=== PATIENT | female | born 1950 | race Caucasian/White ===

== ENCOUNTER 2019-10-14 11:12 | Outpatient (CLI) | payer MEDICARE, SELFPAY | END 2019-10-14 12:00 | disposition home or self-care (01) | LOC: SPT 05-18 11:12 | PROVIDERS: PCP Nurse Practitioner Family; Visit Provider Podiatrist Foot & Ankle Surgery | DX: S92.354D Nondisplaced fracture of fifth metatarsal bone, right foot, subsequent encounter for fracture with routine healing (principal); X58.XXXD Exposure to other specified factors, subsequent encounter | CPT/HCPCS: L3031 ==

== ENCOUNTER → 2019-10-14 12:58 | Outpatient (BNVA) | payer MEDICARE, SELFPAY | PROVIDERS: Visit Provider Podiatrist Foot & Ankle Surgery | DX: S92.301A Fracture of unspecified metatarsal bone(s), right foot, initial encounter for closed fracture (principal); X58.XXXA Exposure to other specified factors, initial encounter | CPT/HCPCS: 73630 ==

== ENCOUNTER → 2019-11-25 13:23 | Outpatient (BNVA) | payer MEDICARE, SELFPAY | PROVIDERS: Visit Provider Podiatrist Foot & Ankle Surgery | DX: M84.374D Stress fracture, right foot, subsequent encounter for fracture with routine healing (principal); X58.XXXD Exposure to other specified factors, subsequent encounter; M81.8 Other osteoporosis without current pathological fracture | CPT/HCPCS: 73630 ==

== ENCOUNTER 2019-12-08 10:04 | Outpatient (CLI) | payer MEDICARE, SELFPAY ==
--- NOTE | 2019-12-08 10:16 | MR_ITS ---
WS: [id number] INDICATION: Foot pain. Pain and medial malleolus and dorsal foot. TECHNIQUE: MRI of the right foot without gadolinium enhancement. FINDINGS: Osteopenia. Normal ankle mortise. Talar dome is normal. Diffuse soft tissue edema involving the ankle and dorsal midfoot soft tissues. Normal medial and lateral malleolus.No avulsion fractures . No drainable fluid collections. Soft tissue edema involving the base of the third fourth and fifth metatarsals with bone marrow edema . Recommend correlation with area of trauma. This may represent contusion or nondisplaced fractures. Slight irregularity suspicious for nondisplaced fracture involving the base of the fourth metatarsal. Infection is also a consideration. Prominent plantar calcaneal spurring. Distal Achilles is normal. Tenosynovitis along the peroneal ten don sheaths. Tendinopathy involving the peroneus longus and brevis. Tenosynovitis along the flexor azevedo llucis longus. Small ankle effusion. MR/MR foot RT wo con* [id number] IMPRESSION: 1. Diffuse dorsal soft tissue edema with bone marrow edema involving the base of the third fourth and fifth metatarsals. Recommend correlation with area of t rauma. Considerations include contusion, nondisplaced fractures, or infection. Suspected nondisplaced fracture involving the base of the fourth metatarsal wit h irregularity in this area 2. No drainable fluid collections. 3. Normal ankle mortise. Normal medial malleolus. 4. Tenosynovitis and tendinopathy involving the peroneal tendons. 5. Tenosynovitis along the flexor hallucis longus.
== END 2019-12-08 10:05 | disposition home or self-care (01) ==
LOC: RADWPI 10:09
PROVIDERS: PCP Nurse Practitioner Family; Visit Provider Podiatrist Foot & Ankle Surgery
DX: M65.871 Other synovitis and tenosynovitis, right ankle and foot (principal); M79.671 Pain in right foot
CPT/HCPCS: 73718

== ENCOUNTER 2021-03-01 16:04 | Outpatient (CLI) | payer MEDICARE, SELFPAY ==
--- NOTE | 2021-03-01 16:31 | ECG_ITS ---
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 Measurements Intervals [place] Rate: 60 P: 17 NH: 139 QRS: -24 QRSD: 119 T: 42 QT: 400 QTc: 402 Interpretive Statements SINUS RHYTHM WITH OCCASIONAL SUPRAVENTRICULAR PREMATURE COMPLEXES VOLTAGE CRITERIA FOR LVH [MEETS CRITERIA IN ONE OF: R(aVL), S(V1), R(V5), R(V5/V6)+S(V1)] POSSIBLE ANTERIOR MYOCARDIAL INFARCTION [30 ms Q WAVE IN V3/V4, OR R < 0.2 mV IN V4], PROBABLY OLD No previous ECG available for comparison Electronically Signed On 03-01-2021 19:13:02 CDT by Filipe Hanley M.D. [id number]
== END 2021-03-01 16:05 | disposition home or self-care (01) ==
LOC: RT 16:13
PROVIDERS: PCP Nurse Practitioner Family; Visit Provider Nurse Practitioner Family
DX: I49.9 Cardiac arrhythmia, unspecified (principal)
CPT/HCPCS: 93005

== ENCOUNTER 2021-04-06 09:31 | Outpatient (CLI) | payer MEDICARE, SELFPAY ==
--- NOTE | 2021-04-06 09:06 | USCV_ITS ---
Lainey Peña Age: 70 Gender: F : 1950 Exam Date: 04/06/2021 09:39 Ordering Phys: Carlyn Worley NP Technologist: Christine Mason Exam Location: [facility] [place] Indication: EDEMA/OLD FL BP: 140 / 80 HR: 53 Rhythm: Sinus Technical Quality: Technically difficult study MEASUREMENTS (Male / Female) Normal Values 2D ECHO LV Diastolic Diameter PLAX 3.9 cm 4.2 - 5.9 / 3.9 - 5.3 cm LV Systolic Diameter PLAX 4.4 cm IVS Diastolic Thickness 1.1 cm 0.6 - 1.0 / 0.6 - 0.9 cm IVS Systolic Thickness 1.4 cm LVPW Diastolic Thickness 4.1 cm 0.6 - 1.0 / 0.6 - 0.9 cm LVPW Systolic Thickness 1.8 cm RV Chamber Size 2.7 cm LVOT Diameter 2.0 cm LV Ejection Fraction 2D Teich 47.2 % LV Ejection Fraction MOD 2C 55.3 % LV Ejection Fraction 2C AL 56.1 % LA Diameter 3.0 cm LA Width 4.4 cm LA Height 5.4 cm RA Width 3.6 cm RA Height 3.8 cm Aorta at Sinotubular Diameter 2.4 cm M-MODE LV Diastolic Diameter MM 5.5 cm 4.2 - 5.9 / 3.9 - 5.3 cm LV Systolic Diameter MM 4.2 cm LV Ejection Fraction MM Teich 46.2 % IVS Diastolic Thickness MM 1.2 cm 0.6 - 1.0 / 0.6 - 0.9 cm IVS Systolic Thickness MM 1.3 cm LVPW Diastolic Thickness MM 1.0 cm 0.6 - 1.0 / 0.6 - 0.9 cm LVPW Systolic Thickness MM 1.4 cm Aortic Annulus Diameter 2.8 cm LA Ao Ratio MM 1.3 MV E Point Septal Separation 1.2 cm DOPPLER AV Peak Velocity 192.0 cm/s LVOT Peak Velocity 108.0 cm/s AV Area Cont Eq vti 2.0 cm squared AV Area Cont Eq pk 1.8 cm squared MV Area PHT 5.0 cm squared Mitral E to A Ratio 1.2 MV E' Velocity 46.0 cm/s Mitral E to MV E' Ratio 13.1 Mitral E to LV E' Lateral Ratio 10.7 Mitral E to LV E' Septal Ratio 17.1 TR Peak Velocity 265.7 cm/s TR Peak Gradient 28.2 mmHg TV Peak E Velocity 77.0 cm/s Right Atrial Pressure 3.0 mmHg Pulmonary Artery Systolic Pressu 31.2 mmHg PV Peak Velocity 89.0 cm/s RV Acceleration Time 0.2 s RV Ejection Time 0.3 s RV AcT/ET 0.4 FINDINGS Left Ventricle Normal left ventricular size, systolic function and wall thickness, with no regional wall motion abnormalities. Left ventricular ejection fraction is estimated at 60 %. Grade II diastolic dysfunction, moderately elevated filling pressures. Right Ventricle Normal right ventricular size and systolic function. Right ventricular systolic pressure 34 mmHg. Right Atrium Normal right atrial size. Left Atrium Mildly increased left atrial size. Mitral Valve Mildly thickened mitral valve. No mitral valve stenosis. Trace mitral valve regurgitation. Aortic Valve Structurally normal trileaflet aortic valve. No aortic valve stenosis. No aortic valve regurgitation. Tricuspid Valve Structurally normal tricuspid valve. Mild tricuspid valve regurgitation. Pulmonic Valve Pulmonic valve not well visualized. No pulmonary valve stenosis. Trace pulmonary valve regurgitation. Pericardium No pericardial effusion. Aorta Normal size aortic root and proximal ascending aorta. CONCLUSIONS 1. Normal left ventricular size, systolic function and wall thickness, with no regional wall motion abnormalities. Left ventricular ejection fraction is estimated at 60 %. Grade II diastolic dysfunction, moderately elevated filling pressures. 2. Normal right ventricular size and systolic function. 3. Mild tricuspid valve regurgitation. 4. Pulmonary artery pressure estimated at 34 mm Hg. 5. No prior similar studies to compare. Crystal García MD (Electronically Signed) Final Date: 07 April 2021 20:13 S
== END 2021-04-06 09:32 | disposition home or self-care (01) ==
PROVIDERS: PCP Nurse Practitioner Family; Visit Provider Nurse Practitioner Family
DX: I25.2 Old myocardial infarction (principal); R60.9 Edema, unspecified; I07.1 Rheumatic tricuspid insufficiency
CPT/HCPCS: 93306

== ENCOUNTER 2021-04-18 07:23 | Outpatient (CLI) | payer MEDICARE, SELFPAY ==
[2021-04-18 07:37] VITALS: BMI 42.5
--- NOTE | 2021-04-18 08:00 | ECG_ITS ---
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 Interpretive Statements NAME OF STUDY: LEXISCAN SESTAMIBI STRESS TEST INDICATION: [old mi] Procedure: At the baseline, the blood pressure was 192/93 mmHg with a heart rate of 55 bpm. The electrocardiogram showed sinus bradycardia, normal axis with normal ST and T's. The Lexiscan was infused over a period of 20 seconds. A total of 0.4 mg of Lexiscan was infused. The stress phase was continued for a total of 5 minutes. Heart rate was at the end of stress phase was 58 bpm and a blood pressure of 179/82 mmHg. The EKG at the peak infusion revealed since normal sinus rhythm with no significant ST-T wave changes. Sestamibi was injected 20 seconds after the Lexiscan infusion. Blood pressure at the end of recovery phase was 178/85 mmHg with a heart rate of 61 bpm. Conclusion: 1. Normal EKG response to Lexiscan infusion 2. No Lexiscan induced chest pain or cardiac arrhythmia. 3. Normal blood pressure and heart rate response. 4. Sestamibi/sestamibi perfusion scan pending; see separate report. Electronically Signed On 05-16-2021 9:26:25 CDT by Filipe Hanley M.D. [id number]
--- NOTE | 2021-04-18 08:01 | NMCV_ITS ---
NM chetan perf SPECT r/s* [id number] Lainey Peña Age: 70 Gender: F : 1950 Exam Date: 04/18/2021 08:46 Ordering Phys: Carlyn Worley NP Technologist: TUNG Benson Exam Location: [facility] Indications: OLD MYOCARDIAL INFARCTION STRESS TEST [facility] IMAGE PROTOCOL Rest/Stress 1 Lexiscan Day Radiopharmaceutical Dose (mCi) Administration Site Administered by Rest: Tc-99m 10.8 IV TUNG Johnson Sestamibi Stress:Tc-99m 32.7 IV TUNG Benson Sestamijeanette Rest: 18-Apr-2021 60 Discovery 630 Stress: 18-Apr-2021 30 Discovery 630 0.4mg Lexiscan. Images obtained in supine and prone position. SPECT RESULTS Technical Quality: Excellent Raw Data Analysis: Breast attenuation Image Corrections: No attenuation or motion correction applied Summed Stress Score: 8 Summed Rest Score: 7 Summed Difference Score: 2 PERFUSION FINDINGS Small size perfusion abnormality of mild severity of basal to mid inferolateral, apical lateral, apical inferior and apical ding on rest images with subtle reversibility in the infero-lateral wall on stress images. There is improved tracer uptake in basal to mid inferolateral wall on prone stress images. FUNCTIONAL RESULTS (calculated via Gated SPECT) Stress Image LV EF (%): 53 Stress EDV (mL):166 TID: 1.09 Stress ESV (mL):78 FUNCTIONAL FINDINGS: The left ventricle is normal in size. Transient Ischemia Dilatation of 1.1. There is low normal left ventricular systolic function. The left ventricular ejection fraction is low normal with a value of 53%. There is normal left ventricular wall thickening with no regional wall motion abnormality. IMPRESSIONS 1. Small sized perfusion abnormality of mild severity of basal to mid inferolateral, apical lateral, apical inferior and apical ding with subtle reversibility in the infero-lateral wall. 2. This may represent attenuation artifact given improved tracer uptake on prone imaging. However small area of ischemia in circumflex artery territory cannot be completely ruled out. 3. Overall left ventricular systolic function is low normal without regional wall motion abnormalities, LVEF=53%. 4. EKG portion of the study will be reported separately. 5. No prior similar studies to compare. Crystal García MD (Electronically Signed) Final Date: 19 April 2021 16:20 S
[2021-04-18] MEDS: regadenoson 0.4 Mg/5 ml Syringe IVP (09:50)
[2021-04-18 10:00] VITALS: BP 178/85; PULSE 61
== END 2021-04-18 07:24 | disposition home or self-care (01) ==
PROVIDERS: PCP Nurse Practitioner Family; Visit Provider Nurse Practitioner Family
DX: I25.2 Old myocardial infarction (principal)
CPT/HCPCS: 78452; 93017; A9500; J2785

== ENCOUNTER 2021-06-02 19:46 | Emergency (ER) | payer MEDICARE, SELFPAY ==
[2021-06-02 20:21] VITALS: BP 206/120; PULSE 69; RESP 18; TEMP 36.6; O2SAT 96; BMI 39.4
--- NOTE | 2021-06-02 20:31 | ED_ITS ---
HPI - Abdominal Pain General: Chief Complaint: Abdominal Pain Stated Complaint: abd pain Time Seen by Provider: 06/02/21 20:31 History of Present Illness: HPI narrative: Ms Peña is a 71-year-old lady with history of hypertension, hyperlipidemia, and atypical chest pain who presents the emergency department due to epigastric discomfort. Symptom onset was at rest sometime after dinner earlier this evening at approximately 6. Symptoms lasted for roughly 30 minutes. She describes a moderate intensity tight band of pressure associated mild chills/sweats, nausea, and shortness of breath. She describes 1 similar episode in the past for which she was not evaluated at hospital but did have an outpatient stress test which was apparently negative. She denies known specific provoking factors. There is no specific exacerbating relieving factors. She is otherwise been at her baseline health. denies infectious symptoms. Review of Systems General: Reports: 10 or more systems reviewed and unremarkable except in HPI and below Narrative: CONSTITUTIONAL: denies fever, fatigue, weakness EYES - denies pain, denies loss of vision EARS - denies ear issues. NOSE - denies congestion or rhinorrhea. THROAT - denies sore throat or difficulty swallowing. CARDIOVASCULAR -see HPI RESPIRATORY -see HPI GASTROINTESTINAL -see HPI GENITOURINARY - denies dysuria or urinary frequency MUSCULOSKELETAL- denies deformity or pain SKIN - denies rashes or new changed skin lesions NEUROLOGIC - denies focal weakness or sensory changes HEMATOLOGIC/LYMPHATIC - denies easy bruising or lymphadenopathy. [facility] ED PFSH: Medical History Arthrosis of right midfoot Metatarsalgia, left foot PAD (peripheral artery disease) Stress fracture of metatarsal bone of right foot Family History Mother CAD (coronary artery disease) Father CAD (coronary artery disease) Brother Lung disease Stroke Denies family history of Diabetes Clotting disorder Dementia Chronic kidney disease (CKD) Suicide Anesthesia complication Bleeding disorder Cancer Social History Smoking and tobacco status: never smoked Second hand smoke exposure: No Smoking risk assessment/counseling performed?: Yes Alcohol intake: never Desire information about alcohol rehabilitation?: No Counseling given: No Desire information about substance/drug rehabilitation?: No Counseling given: No Physical Exam Narrative: EXAM NARRATIVE: GENERAL/CONSTITUTIONAL - well-appearing. No acute distress. Eyes - PERRL, no conjunctival injection ENMT - Atraumatic external nose and ears. Moist mucous membranes NECK - supple. trachea midline CARDIOVASCULAR - regular rate and rhythm. Peripheral pulses 2+ and equal RESPIRATORY -clear to auscultation bilaterally. No retractions or accessory muscle use. ABDOMEN/GI -mild to moderate tenderness palpation in the upper left quadrant and epigastric region. Nondistended. No tenderness to percussion or evidence of peritonitis MSK - Extremities without obvious deformity or tenderness to palpation SKIN - Warm, Dry NEURO - alert and appropriately oriented. strength and sensation intact. Moves all extremities equally. PSYCH - Appropriate mood and affect Course ED course: - Patient was seen and evaluated by me at bedside - Patient placed on cardiac monitors, IV access obtained - Initial evaluation notable for no acute distress, nontoxic appearance. Exam as noted above. - Labs notable for no significant abnormality to explain the patient's symptoms. Delta troponin negative. Likely mild dehydration, fluids ordered. - Imaging notable for no lobar consolidation or obvious abnormality noted on chest x-ray. Cholelithiasis without evidence of cholecystitis. Mild thickening of the lower esophagus which may be secondary to GERD/hiatal hernia. Incidental finding of right adnexal ovarian cystic lesion discussed with patient including need for follow-up. -Findings of previous perfusion scan on stress test discussed with Dr. Agee of cardiology, likely felt to be artifactual. Patient does not require admission at this time based on these findings and, given story and negative troponin repeat stress test or cardiac cath procedure would not be performed inpatient. This was discussed with the patient. She was comfortable with outpatient follow-up. - Upon serial reexamination after treatment the patient was improved without recurrence of symptoms - Based on patient history, evaluation, labs, and imaging as interpreted the most likely cause of the patient's condition is unspecified abdominal pain - The results of ED evaluation were discussed with the patient including prescriptions and/or symptomatic cares (if applicable) including appropriate and responsible use, followup plan, and return precautions. The patient verbalized understanding and felt safe for discharge. - Patient discharged in satisfactory condition. Vital Signs: Vital signs: Vital Signs Temperature 98.8 F 06/02/21 22:42 Pulse Rate 55 L 06/03/21 00:03 Respiratory Rate 16 06/03/21 00:03 Blood Pressure 170/91 06/03/21 00:03 Pulse Oximetry 97 06/03/21 00:03 MDM - Abdominal Pain Medical Records: Attestation: I reviewed the patient's medical records. Lab Data: Attestation: I reviewed the patient's lab results. Labs: Lab Results 06/02/21 06/02/21 06/02/21 Range/Units 21:32 21:32 21:32 WBC 9.4 (4.0-10.0) 10^3/ uL RBC 4.62 (4.1-5.3) 10^6/u L Hgb 13.6 (11.5-15.3) g/dL Hct 42.3 (37.0-47.0) % MCV 91.6 (81-99) fl MCH 29.4 (28.0-34.0) pg MCHC 32.2 (30.0-36.0) g/dL RDW 12.3 (12.1-15.1) % Plt Count 207 (130-400) 10^3/c mm MPV 11.4 H (7.4-10.4) fL Neut % (Auto) 77.5 % Lymph % (Auto) 15.3 % Alexander % (Auto) 5.8 % Eos % (Auto) 0.8 % Baso % (Auto) 0.4 % Neut # (Auto) 7.29 (1.8-7.7) 10^3/u L Lymph # (Auto) 1.4 (0.8-4.8) 10^3/u L Alexander # (Auto) 0.6 (0.2-0.9) 10^3/u L Eos # (Auto) 0.1 (0.0-0.8) 10^3/u L Baso # (Auto) 0.0 (0.0-0.1) 10^3/u L Nucleated RBC % (a uto) 0 % Nucleated RBCs # 0.0 /100WBC Sodium 144 (136-145) mmol/L Potassium 4.3 (3.5-5.1) mmol/L Chloride 108 H (98-107) mmol/L Carbon Dioxide 24 (22-29) mmol/L Anion Gap 16.3 (5-19) BUN 22 (8-23) mg/dL Creatinine 1.1 H (0.5-0.9) mg/dL GFR Calculation Not Reportable Glucose 91 (65-115) mg/dL Calculated Osmolal ity 301 H (285-295) mOsm/k g Lactate 0.9 (0.5-2.2) mmol/L Calcium 8.7 (8.5-10.5) mg/dL Total Bilirubin 0.2 (0.15-1.2) mg/dL AST 36 H (0-32) U/L ALT 24 (0-33) U/L Alkaline Phosphata se 159 H (35-105) IU/L Troponin T Baselin e (0-10) ng/L Troponin T 120 Min [place] (0-10) ng/L Delta Troponin T (0-10) ABS# Total Protein 6.3 L (6.6-8.7) g/dL Albumin 4.1 (3.5-5.2) g/dL Globulin 2.2 (1.3-4.6) g/dL Lipase 28 (13-60) U/L Urine Color (Yellow) Urine Appearance (CLEAR) Urine pH (5-7) Ur Specific Gravit y (1.005-1.030) Urine Protein (Negative) Urine Glucose (UA) (Normal) Urine Ketones (Negative) Urine Blood (Negative) Urine Nitrate (Negative) Urine Bilirubin (Negative) Urine Urobilinogen (Negative) mg/dL Ur Leukocyte Nisa ase (Negative) 06/02/21 06/02/21 06/02/21 Range/Units 21:32 21:33 22:14 WBC (4.0-10.0) 10^3/ uL RBC (4.1-5.3) 10^6/u L Hgb (11.5-15.3) g/dL Hct (37.0-47.0) % MCV (81-99) fl MCH (28.0-34.0) pg MCHC (30.0-36.0) g/dL RDW (12.1-15.1) % Plt Count (130-400) 10^3/c mm MPV (7.4-10.4) fL Neut % (Auto) % Lymph % (Auto) % Alexander % (Auto) % Eos % (Auto) % Baso % (Auto) % Neut # (Auto) (1.8-7.7) 10^3/u L Lymph # (Auto) (0.8-4.8) 10^3/u L Alexander # (Auto) (0.2-0.9) 10^3/u L Eos # (Auto) (0.0-0.8) 10^3/u L Baso # (Auto) (0.0-0.1) 10^3/u L Nucleated RBC % (a uto) % Nucleated RBCs # /100WBC Sodium (136-145) mmol/L Potassium (3.5-5.1) mmol/L Chloride (98-107) mmol/L Carbon Dioxide (22-29) mmol/L Anion Gap (5-19) BUN (8-23) mg/dL Creatinine (0.5-0.9) mg/dL GFR Calculation Glucose (65-115) mg/dL Calculated Osmolal ity (285-295) mOsm/k g Lactate (0.5-2.2) mmol/L Calcium (8.5-10.5) mg/dL Total Bilirubin (0.15-1.2) mg/dL AST (0-32) U/L ALT (0-33) U/L Alkaline Phosphata se (35-105) IU/L Troponin T Baselin e 10 (0-10) ng/L Troponin T 120 Min [place] 10.62 H (0-10) ng/L Delta Troponin T 0.62 (0-10) ABS# Total Protein (6.6-8.7) g/dL Albumin (3.5-5.2) g/dL Globulin (1.3-4.6) g/dL Lipase (13-60) U/L Urine Color Yellow (Yellow) Urine Appearance Clear (CLEAR) Urine pH 5 (5-7) Ur Specific Gravit y 1.015 (1.005-1.030) Urine Protein Neg (Negative) Urine Glucose (UA) Norm (Normal) Urine Ketones Negative (Negative) Urine Blood Neg (Negative) Urine Nitrate Negative (Negative) Urine Bilirubin 1+ H (Negative) Urine Urobilinogen 1 H (Negative) mg/dL Ur Leukocyte Nisa ase Negative (Negative) EKG Data ^: EKG 1: Attestation: I personally reviewed and interpreted this EKG as follows: EKG interpretation date: 06/02/21 EKG interpretation time: 22:30 Interpretation: Twelve-lead EKG shows an irregular sinus rhythm at a rate of 58. WV interval 151, QRS duration 119, QTc 429. Left axis deviation. Interpretation: Sinus arrhythmia, bradycardia, interventricular conduction delay. Discharge Plan Discharge Patient Disposition: Home Clinical Impression: Abdominal pain, Atypical chest pain, Hypertension Condition: Stable Prescriptions: New Pepcid 40 mg tablet 40 mg PO DAILY Qty: 30 RF: 0 No Action verapamil 120 mg tablet 120 mg PO BID RF: 0 (DME) carbon fiber insert Qty: 1 RF: 0 lovastatin 20 mg tablet 10 mg PO DAILY RF: 0 furosemide 40 mg tablet 40 mg PO BID PRN (Reason: edema) RF: 0 lisinopril 40 mg tablet 40 mg PO DAILY Qty: 90 RF: 3 nitroglycerin 0.4 mg tablet, sublingual 0.4 mg sublingual Q5M PRN (Reason: chest pain) 30 Days Qty: 30 RF: 3 Discharge Orders: Discharge ED (Routine); Ordered 06/02/21 Ordered By: Mario Figueroa Referrals: Carlyn Worley NP [Primary Care Provider] - Discharge Diet: Usual diet Patient Instructions: Chest Pain (ED), Abdominal Pain (ED) Activity Restrictions/Additional Instructions: Thank you for visiting the emergency department. You were seen and evaluated for upper abdominal discomfort that since resolved. The exact cause of your symptoms is unclear. Your troponin was normal over 2-hour interval. Your CT scan showed a few possible causes of your symptoms. You were noted to have gallstones (cholelithiasis) without distinct evidence of infection of the gallbladder (cholecystitis). This can cause discomfort typically thought it is biliary colic. Additionally you do have mild inflammation of the esophagus. The most common cause of this is likely reflux. You will be given a prescription for acid reducing medication. As an incidental finding radiology reported a: 4.5 x 4.1 cm right adnexal/ovarian cystic lesion, increasing in size. The interval growth would raise concern for possible ovarian neoplasm such as cystadenoma or cystadenocarcinoma. Appropriate gynecological workup/follow-up recommended. Please follow-up with your primary care provider. Please follow-up with your primary care provider. Please return to the emergency department for recurrence of your symptoms, chest pain, shortness of breath, or anything else that you are concerned about and feel needs emergency department evaluation. Coding Level of Care Code ED [employer]
--- NOTE | 2021-06-02 20:45 | XRR_ITS ---
PROCEDURE INFORMATION: Exam: XR Chest Exam date and time: 06/02/2021 8:45 PM Age: 71 years old Clinical indication: Pain; Left-sided; Additional info: Chest pain under breast TECHNIQUE: Imaging protocol: XR of the chest. Views: 1 view. Total images: 1 COMPARISON: No relevant prior studies available. FINDINGS: Lungs: No visible active interstitial or alveolar airspace disease. Pleural spaces: No pleural effusion. No pneumothorax. Heart/Mediastinum: Cardiac structures and configuration with arteriosclerosis and mild cardiomegaly. Bones/joints: Unremarkable. XR/XR chest 1V portable [id number] IMPRESSION: Nonacute.
[2021-06-02 21:41] LABS: Basophils % 0.4 %; Eosinophils # 0.1 10^3/uL (0.0-0.8); Eosinophils % 0.8 %; Hematocrit 42.3 % (37.0-47.0); Hemoglobin 13.6 g/dL (11.5-15.3); Lymphocytes # 1.4 10^3/uL (0.8-4.8); Lymphocytes % 15.3 %; Mean Corpuscular HGB Conc 32.2 g/dL (30.0-36.0); Mean Corpuscular Hemoglobin 29.4 pg (28.0-34.0); Mean Corpuscular Volume 91.6 fl (81-99); Mean Platelet Volume 11.4 fL (7.4-10.4); Monocytes # 0.6 10^3/uL (0.2-0.9); Monocytes % 5.8 %; Neutrophils # 7.29 10^3/uL (1.8-7.7); Neutrophils % 77.5 %; Nucleated Red Blood Cells % 0 %; Platelet Count 207 10^3/cmm (130-400); Red Blood Count 4.62 10^6/uL (4.1-5.3); Red Cell Distribution Width 12.3 % (12.1-15.1); White Blood Count 9.4 10^3/uL (4.0-10.0)
[2021-06-02 21:56] LABS: Add Urine Microscopic? NO; Charge for UA Resulting for Rev
[2021-06-02 21:57] VITALS: BP 210/110; PULSE 62; RESP 18; TEMP 36.4; O2SAT 98
[2021-06-02 22:01] LABS: Bilirubin Urine 1+ (Negative); Blood Urine Neg (Negative); Glucose Urine UA Norm (Normal); Ketones Urine Negative (Negative); Leukocyte Esterase Urine Negative (Negative); Nitrate Urine Negative (Negative); Protein Urine Neg (Negative); Specific Gravity, Urine 1.015 (1.005-1.030); Urine Appearance Clear (CLEAR); Urine Color Yellow (Yellow); Urobilinogen Urine 1 mg/dL (Negative); pH Urine 5 (5-7)
[2021-06-02 22:05] LABS: Troponin(5th) Baseline 10 ng/L (0-10)
[2021-06-02 22:07] LABS: Alanine Aminotransferase 24 U/L (0-33); Albumin Level 4.1 g/dL (3.5-5.2); Alkaline Phosphatase 159 IU/L (35-105); Anion Gap 16.3 (5-19); Aspartate Amino Transferase 36 U/L (0-32); Blood Urea Nitrogen 22 mg/dL (8-23); Calcium 8.7 mg/dL (8.5-10.5); Carbon Dioxide 24 mmol/L (22-29); Chloride 108 mmol/L (98-107); Globulin 2.2 g/dL (1.3-4.6); Glucose 91 mg/dL (65-115); Lipase 28 U/L (13-60); Osmolality Calculated 301 mOsm/kg (285-295); Potassium 4.3 mmol/L (3.5-5.1); Sodium 144 mmol/L (136-145); Total Bilirubin 0.2 mg/dL (0.15-1.2); Total Protein 6.3 g/dL (6.6-8.7)
[2021-06-02 22:08] LABS: Lactate (Lactic Acid level) 0.9 mmol/L (0.5-2.2)
--- NOTE | 2021-06-02 22:19 | CTR_ITS ---
PROCEDURE INFORMATION: Exam: CT Abdomen And Pelvis With Contrast Exam date and time: 06/02/2021 10:19 PM Age: 71 years old Clinical indication: Other: Sweating; Abdominal pain TECHNIQUE: Imaging protocol: Computed tomography of the abdomen and pelvis with contrast. Radiation optimization: All CT scans at this facility use at least one of these dose optimization techniques: automated exposure control; mA and/or kV adjustment per patient size (includes targeted exams where dose is matched to clinical indication); or iterative reconstruction. Contrast material: VISI 320; Contrast volume: 95 ml; Contrast route: INTRAVENOUS (IV); COMPARISON: CTA AbdAorta Runoff Leg [id number] 06/17/2019 2:52 PM RADIATION DOSE METRICS: Total DLP (mGy-cm): 1463.31 FINDINGS: Lungs: The lung bases are clear. Heart: Moderate cardiomegaly. Mediastinal space: Possible small hiatal hernia. There may be some mucosal/wall thickening involving the lower esophagus. This is nonspecific, but could represent evidence for esophagitis. Neoplasm not entirely excluded. Please correlate clinically. Liver: Unremarkable. Gallbladder and bile ducts: Several large gallstones visible within the gallbladder, measuring up to 2.5 cm in size. The gallbladder is somewhat distended, transverse diameter up to 4.5 cm. No definite pericholecystic fluid or inflammation at this time. No definite/significant biliary tree dilation. Pancreas: Unremarkable. Spleen: Unremarkable. Adrenal glands: Unremarkable. Kidneys and ureters: 12 mm likely benign cyst in the left kidney, not significantly changed. No hydronephrosis of either kidney. No visible ureteral calculus. Stomach and bowel: There are no CT findings to strongly suggest diverticulitis. Appendix: The appendix is visualized and appears normal. Intraperitoneal space: No free air, ascites, or bowel distention. Vasculature: No evidence for abdominal aortic aneurysm. Lymph nodes: No retroperitoneal adenopathy. Urinary bladder: Unremarkable as visualized. Reproductive: 4.5 x 4.1 cm right adnexal/ovarian cystic lesion. On the 2018 comparison exam, this cyst measured 3.5 x 3.5 cm. Physiologic cysts would not be expected in this age group. The interval growth would raise concern for possible ovarian neoplasm such as cystadenoma or cystadenocarcinoma. Appropriate gynecological workup/follow-up recommended. Bones/joints: Mild to moderate degenerative/arthritic changes throughout the lumbar spine. Moderate arthritic changes in both hips. Soft tissues: Small umbilical hernia, containing only fat. CT/CT abdomen pelvis w con* [id number] IMPRESSION: 1. Cholelithiasis, see additional details above. 2. 4.5 x 4.1 cm right adnexal/ovarian cystic lesion, increasing in size. The interval growth would raise concern for possible ovarian neoplasm such as cystadenoma or cystadenocarcinoma. Appropriate gynecological workup/follow-up recommended. 3. Normal appendix. 4. No free air or bowel distention. 5. Possible small hiatal hernia. Possibly some thickening of the lower esophagus, see above discussion. 6. Other findings discussed above. Radiation Dose CTDIVOL = (mGy): DLP = 1463.31 (mGy-cm)
[2021-06-02] MEDS: lisinopril 20 mg Tablet 40 MG PO (22:29)
--- NOTE | 2021-06-02 22:31 | ECG_ITS ---
[facility] Test Date: 2021-06-02 Pat Name: Lainey Peña Department: Room: Gender: Female Sql Ssrs Ssis Developer: : 1950 Requested By: Jarrell Chapa Order Number: [id number] Briceno MD: Crystal García M.D. Measurements Intervals [place] Rate: 58 P: 81 OR: 151 QRS: -28 QRSD: 119 T: 64 QT: 437 QTc: 429 Interpretive Statements SINUS BRADYCARDIA WITH MARKED SINUS ARRHYTHMIA VOLTAGE CRITERIA FOR LVH [MEETS CRITERIA IN ONE OF: R(aVL), S(V1), R(V5), R(V5/V6)+S(V1)] POSSIBLE ANTERIOR MYOCARDIAL INFARCTION , OF INDETERMINATE AGE [30 ms Q WAVE IN V3/V4, OR R < 0.2 mV IN V4] Compared to ECG 03/01/2021 16:26:37 Sinus rhythm no longer present Myocardial infarct finding still present Electronically Signed On 06-03-2021 9:06:11 CDT by Crystal García M.D. [id number]
[2021-06-02] MEDS: iodixanol 320 mg/mL 100mL Btl IV (22:35)
[2021-06-02 22:38] LABS: Troponin 5 2HR 10.62 ng/L (0-10); Troponin 5 2HR Delta 0.62 ABS# (0-10)
[2021-06-02 22:42] VITALS: BP 170/110; PULSE 68; RESP 20; TEMP 37.1; O2SAT 98
[2021-06-03 00:03] VITALS: BP 170/91; PULSE 55; RESP 16; O2SAT 97
== END 2021-06-03 00:07 | disposition home or self-care (01) ==
PROVIDERS: Emergency Medicine; Physician Assistant; Emergency Provider Emergency Medicine; PCP Nurse Practitioner Family
DX: R10.9 Unspecified abdominal pain (principal); R07.89 Other chest pain; I10 Essential (primary) hypertension
CPT/HCPCS: 71045; 74177; 80053; 81003; 83605; 83690; 84484; 85025; 93005; 99283; Q9967

== ENCOUNTER → 2021-08-11 10:49 | Outpatient (BNVA) | payer MEDICARE, SELFPAY | PROVIDERS: PCP Nurse Practitioner Family; Visit Provider Obstetrics & Gynecology | DX: N83.201 Unspecified ovarian cyst, right side (principal); N88.8 Other specified noninflammatory disorders of cervix uteri; N85.4 Malposition of uterus | CPT/HCPCS: 76830 ==

== ENCOUNTER → 2021-12-15 09:41 | Outpatient (BNVA) | payer MEDICARE, SELFPAY | PROVIDERS: PCP Nurse Practitioner Family; Visit Provider Internal Medicine Cardiovascular Disease | DX: R06.02 Shortness of breath (principal); I11.0 Hypertensive heart disease with heart failure; I50.9 Heart failure, unspecified | CPT/HCPCS: 99214 ==

== ENCOUNTER 2022-03-03 05:58 | Outpatient (CLI) | payer MEDICARE, SELFPAY ==
--- NOTE | 2022-03-03 06:15 | USCV_ITS ---
Lainey Peña Age: 71 Gender: F : 1950 Exam Date: 03/03/2022 06:15 Ordering Phys: Meliton Cole MD ([email or web address]) Technologist: Danelle Weathers [place]am [place] [facility] [place] Indication: Pain in legs. Pain while resting and motion Risk Factors: Unknown Previous Vascular Surgery: None RIGHT LEFT BP: 150.0 / BP: 161.0/ 0 0 Waveform Velocity (cm/s) Velocity (cm/s) Waveform Triphasic 114.7 Iliac Prox 101.9 Biphasic Triphasic 89.2 Iliac Mid 114.1 Biphasic Triphasic 70.1 Iliac Distal 119.7 Biphasic Triphasic 69.7 INSIDE SALES ADVERTISING EXECUTIVE 122.5 Biphasic Triphasic 70.8 SFA Prox 97.9 Biphasic Triphasic SFA Mid Biphasic 52.2 90.3 Triphasic 70.8 SFA Dist 101.0 Biphasic Triphasic 42.7 POP 87.2 Biphasic Triphasic 63.0 AUTOMOBILE BODY WORKER 82.6 Biphasic Triphasic 81.5 DPA 71.9 Biphasic 1.1 RHONDA 1.0 FINDINGS RT DPA 100 RT AUTOMOBILE BODY WORKER 180 LT DPA 140 LT AUTOMOBILE BODY WORKER 160 Resting RHONDA 1.1 on the right side and 1.0 on the left side. Mild to moderate diffuse plaques in the iliac and femoral arteries bilaterally CONCLUSIONS #1. Normal resting ABIs bilaterally, suggesting no significant arterial obstruction #2. Mild to moderate diffuse plaques in the iliac and femoral arteries bilaterally Dr Meliton Cole MD [facility] (Electronically Signed) Final Date: 04 March 2022 00:52 S
== END 2022-03-03 05:59 | disposition home or self-care (01) ==
LOC: RAD 05:58
PROVIDERS: PCP Nurse Practitioner Family; Visit Provider Internal Medicine Cardiovascular Disease
DX: I73.9 Peripheral vascular disease, unspecified (principal)
CPT/HCPCS: 93925

== ENCOUNTER → 2022-06-20 10:26 | Outpatient (BNVA) | payer MEDICARE, SELFPAY | PROVIDERS: PCP Nurse Practitioner Family; Visit Provider Nurse Practitioner Family | DX: I73.9 Peripheral vascular disease, unspecified (principal); I10 Essential (primary) hypertension | CPT/HCPCS: 99213; 99214 ==

== ENCOUNTER → 2022-06-29 10:41 | Outpatient (BNVA) | payer MEDICARE, SELFPAY | PROVIDERS: PCP Nurse Practitioner Family; Visit Provider Obstetrics & Gynecology | DX: N83.201 Unspecified ovarian cyst, right side (principal) | CPT/HCPCS: 76830 ==

== ENCOUNTER 2022-07-18 03:59 | Inpatient (IN) | payer MEDICARE, SELFPAY ==
[2022-07-18] VITALS (24 sets, daily range): BP systolic 128–220; BP diastolic 56–121; PULSE 63–85; RESP 14–30; TEMP 36.8–37.2; O2SAT 90–97; BMI 47.8
--- NOTE | 2022-07-18 04:09 | USR_ITS ---
PROCEDURE INFORMATION: Exam: US Abdomen, Limited; Right Upper Quadrant Exam date and time: 07/18/2022 4:48 AM Age: 72 years old Clinical indication: Abdominal pain; Acute; Patient HX: Mid epigastric and mid umbilical pain x 8 hrs; Additional info: Abd pain TECHNIQUE: Imaging protocol: Real time ultrasound of the abdomen with image documentation. Limited exam focused on the right upper quadrant. COMPARISON: CT abdomen pelvis w con* [id number] 06/02/2021 10:29 PM FINDINGS: Liver: Somewhat increased echogenicity of the liver may indicate fatty infiltration. The liver appears borderline/mildly enlarged, with right lobe length of 19-20 cm. No definite/significant focal hepatic abnormality on the provided images. Gallbladder: Multiple shadowing gallstones within the gallbladder, measuring up to about 3 cm in size. There is also a prominent amount of biliary sludge in the gallbladder. The gallbladder is abnormally distended, transverse diameter up to about 5 cm. Gallbladder wall appears somewhat thickened, up to 10-11 mm in some areas. No definite pericholecystic fluid. Technologist states patient was tender over the gallbladder region during scanning. The above findings could represent evidence for cholecystitis, please correlate clinically. Biliary ducts: Borderline/mild biliary tree dilation for age, with common duct measuring up to 7.7 mm. No visible common duct stone by ultrasound. Significance uncertain. Correlation with laboratory/bilirubin levels may be helpful to determine if there is any significant biliary obstruction. Pancreas: Visible pancreas unremarkable. Right kidney: Images of the right kidney show no hydronephrosis. US/US gall bladder [id number] IMPRESSION: 1. Cholelithiasis, with prominent gallbladder distention, see additional details above. 2. Borderline/mild biliary tree dilation for age, see above discussion. 3. Other findings discussed above.
--- NOTE | 2022-07-18 04:10 | W.ED.ABDPA2 ---
HPI - Abdominal Pain General: Chief Complaint: ER Hold Stated Complaint: abd pain Time Seen by Provider: 07/18/22 04:01 Source: patient Mode of arrival: ambulatory Limitations: no limitations History of Present Illness: 72-year-old female states that she has been having abdominal pain since last night. States she is got a sharp pain in her epigastric region she rates a 7 out of 10 she had some nausea denies any vomiting states she had a history of a gallstone but never had a cholecystectomy. She denies any chest pain denies any fever denies any diarrhea. Associated Symptoms: Reports nausea; Denies chills, dysuria and fever(s) Review of Systems Const: Denies: fever(s), chills, body aches or change in appetite Eyes: Denies: blurry vision or eye discomfort ENMT: Denies: throat pain or dental pain Card: Denies: chest pain Resp: Denies: dyspnea GI: Reports: abdominal pain and nausea : Denies: dysuria Musc: Denies: neck pain or back pain Skin/Breast: Denies: rash Neuro: Denies: headache(s) Psych: Denies: depression Óscar/Lymph: Denies: easy bruising All/Imm: Denies: urticaria PFSH ED PFSH: Medical History Dyslipidemia Diagnosed in her 60s and is on medication managed by her primary care provider Gout Hypertension Diagnosed in her 60s and is controlled on medication managed by her primary care provider. She also sees Dr. Cole No pertinent past medical history Denies diabetes, asthma, seizures, DVT/PE PCP: Dr. Worley Obesity Ovarian cyst Peripheral arterial disease Surgical History S/P bilateral cataract extraction S/P right knee surgery Laser surgery for torn ligament, performed in approximately 2018 Family History Mother Heart disease Father Heart disease Brother Stroke Sister Hypertension x 2 Denies family history of Colon cancer Ovarian cancer Diabetes Breast cancer Uterine cancer Thyroid condition Social History Smoking and tobacco status: never smoked Physical Exam Const: COMMON NORMALS: no acute distress, patient oriented x3 and healthy appearing HENMT: COMMON NORMALS: normocephalic and atraumatic HEAD & SCALP: normocephalic and atraumatic Eye: COMMON NORMALS: Equal, round and reactive pupils present and EOMs intact bilaterally PUPIL: Yes Equal, round and reactive pupils present Neck/C-Spine: COMMON NORMALS: full ROM and supple Chest: COMMONS NORMALS: normal inspection of the chest and normal palpation of entire chest wall Resp: COMMON NORMALS: normal respiratory effort, No retractions, No use of accessory muscles and clear to auscultation bilaterally AUSCULTATION: clear to auscultation bilaterally Cardio: COMMON NORMALS: regular rate, regular rhythm and No murmurs present (Cardio) RATE: regular rate RHYTHM: regular rhythm GI: COMMON NORMALS: Normal to inspection, nondistended, normoactive bowel sounds present, Soft to palpation, non-tender and no masses PALPATION: Yes Soft to palpation and Yes Tenderness to palpation present (GI) (epigastric) Extremity: COMMON NORMALS: normal to inspection and full ROM Neuro: COMMON NORMALS: patient oriented x3, moves all extremities and no focal motor deficits Psych: COMMON NORMALS: mental status grossly normal, Normal thought process present and cooperative THOUGHT PROCESS: Normal thought process present Skin: COMMON NORMALS: no rashes or lesions noted and no wounds GENERAL SKIN EXAM: no rashes or lesions noted Course Vital Signs: Vital signs: Vital Signs Temperature 98.8 F 07/18/22 17:01 Pulse Rate 63 07/18/22 17:01 Respiratory Rate 24 H 07/18/22 17:01 Blood Pressure 160/72 07/18/22 17:01 Pulse Oximetry 90 07/18/22 17:01 Oxygen Delivery Me thod 07/18/22 17:28 Oxygen Flow Rate 6 07/18/22 16:40 MDM - Abdominal Pain Medical Decision Making Patient presents here with cholecystitis I spoke to surgeon on-call will admit patient given IV antibiotics. Lab Data : 07/18/22 04:20 07/18/22 04:20 Labs/Radiology: Radiology Impressions Gallbladder Ultrasound 07/18/22 04:09 IMPRESSION: 1. Cholelithiasis, with prominent gallbladder distention, see additional details above. 2. Borderline/mild biliary tree dilation for age, see above discussion. 3. Other findings discussed above. Laboratory Results WBC 15.2 10^3/uL (4.0-10.0) H 07/18/22 04:20 RBC 5.04 10^6/uL (4.1-5.3) 07/18/22 04:20 Hgb 15.0 g/dL (11.5-15.3) 07/18/22 04:20 Hct 46.3 % (37.0-47.0) 07/18/22 04:20 MCV 91.9 fl (81-99) 07/18/22 04:20 MCH 29.8 pg (28.0-34.0) 07/18/22 04:20 MCHC 32.4 g/dL (30.0-36.0) 07/18/22 04:20 RDW 13.1 % (12.1-15.1) 07/18/22 04:20 Plt Count 238 10^3/cmm (130-400) 07/18/22 04:20 MPV 11.6 fL (7.4-10.4) H 07/18/22 04:20 Neut % (Auto) 83.9 % 07/18/22 04:20 Lymph % (Auto) 9.3 % 07/18/22 04:20 [place] % (Auto) 5.5 % 07/18/22 04:20 Eos % (Auto) 0.5 % 07/18/22 04:20 Baso % (Auto) 0.3 % 07/18/22 04:20 Neut # (Auto) 12.72 10^3/uL (1.8-7.7) H 07/18/22 04:20 Lymph # (Auto) 1.4 10^3/uL (0.8-4.8) 07/18/22 04:20 [place] # (Auto) 0.8 10^3/uL (0.2-0.9) 07/18/22 04:20 Eos # (Auto) 0.1 10^3/uL (0.0-0.8) 07/18/22 04:20 Baso # (Auto) 0.1 10^3/uL (0.0-0.1) 07/18/22 04:20 Nucleated RBC % (auto) 0 % 07/18/22 04:20 Nucleated RBCs # 0.0 /100WBC 07/18/22 04:20 Sodium 139 mmol/L (136-145) 07/18/22 04:20 Potassium 4.1 mmol/L (3.5-5.1) 07/18/22 04:20 Chloride 101 mmol/L (98-107) 07/18/22 04:20 Carbon Dioxide 24 mmol/L (22-29) 07/18/22 04:20 Anion Gap 18.1 (5-19) 07/18/22 04:20 BUN 13 mg/dL (8-23) 07/18/22 04:20 Creatinine 0.6 mg/dL (0.5-0.9) 07/18/22 04:20 GFR Calculation Not Reportable 07/18/22 04:20 Glucose 132 mg/dL (65-115) H 07/18/22 04:20 Estimat Average Glucose 108 07/18/22 04:20 Hemoglobin A1c 5.4 % (4.0-6.0) 07/18/22 04:20 Calculated Osmolality 290 mOsm/kg (285-295) 07/18/22 04:20 Calcium 9.8 mg/dL (8.5-10.5) 07/18/22 04:20 Total Bilirubin 0.6 mg/dL (0.15-1.2) 07/18/22 04:20 AST 21 U/L (0-32) 07/18/22 04:20 ALT 17 U/L (0-33) 07/18/22 04:20 Alkaline Phosphatase 152 U/L (35-105) H 07/18/22 04:20 Troponin T Gen 5 ng/L 11 ng/L (0-10) H 07/18/22 04:20 Total Protein 7.9 g/dL (6.6-8.7) 07/18/22 04:20 Albumin 4.4 g/dL (3.5-5.2) 07/18/22 04:20 Globulin 3.5 g/dL (1.3-4.6) 07/18/22 04:20 Lipase 14 U/L (13-60) 07/18/22 04:20 TSH 1.53 uIU/mL (0.27-4.20) 07/18/22 04:20 EKG Data EKG 1: I personally reviewed and interpreted this EKG as follows: EKG interpretation date: 07/18/22 EKG interpretation time: 04:31 Interpretation: nsr hr [address] elevation qrs 125 qtc 427 Discharge Plan Discharge Patient Disposition: Admitted As Inpatient Admit Provider: Penny Lawton Clinical Impression: Cholecystitis Condition: Stable Coding Level of Care Code ED Petroleum Refining Firer for Chg Fwd Exam Comprehensive
[2022-07-18] MEDS: HYDROmorphone 1 mg/mL INJ 1 mL 0.5 MG IVP (04:26)
[2022-07-18] MEDS: ondansetron 2 mg/ML SDV 2 mL 4 MG IVP (04:26)
--- NOTE | 2022-07-18 04:31 | ECG_ITS ---
[facility] Test Date: 2022-07-18 Pat Name: Lainey Peña Department: Room: Gender: Female Data Keyer: : 1950 Requested By: Idalmis Grijalva Order Number: [id number] Kaity MD: Crystal García M.D. Measurements Intervals [place] Rate: 71 P: 87 RI: 153 QRS: -31 QRSD: 125 T: 50 QT: 405 QTc: 441 Interpretive Statements SINUS RHYTHM LEFT AXIS DEVIATION [QRS AXIS < -30] VOLTAGE CRITERIA FOR LVH POSSIBLE ANTERIOR MYOCARDIAL INFARCTION , OF INDETERMINATE AGE Compared to ECG 06/02/2021 22:23:09 Left-axis deviation now present Sinus bradycardia no longer present Sinus arrhythmia no longer present Myocardial infarct finding still present Electronically Signed On 07-18-2022 10:41:42 CDT by Crystal García M.D. [id number]
--- NOTE | 2022-07-18 04:40 | PC.NURSE ---
Attempted urine sample, but pt unsuccessful. Will attempt again soon. notified.
[2022-07-18 04:44] LABS: Basophils # 0.1 10^3/uL (0.0-0.1); Basophils % 0.3 %; Eosinophils # 0.1 10^3/uL (0.0-0.8); Eosinophils % 0.5 %; Hematocrit 46.3 % (37.0-47.0); Lymphocytes # 1.4 10^3/uL (0.8-4.8); Lymphocytes % 9.3 %; Mean Corpuscular HGB Conc 32.4 g/dL (30.0-36.0); Mean Corpuscular Hemoglobin 29.8 pg (28.0-34.0); Mean Corpuscular Volume 91.9 fl (81-99); Mean Platelet Volume 11.6 fL (7.4-10.4); Monocytes # 0.8 10^3/uL (0.2-0.9); Monocytes % 5.5 %; Neutrophils # 12.72 10^3/uL (1.8-7.7); Neutrophils % 83.9 %; Nucleated Red Blood Cells % 0 %; Platelet Count 238 10^3/cmm (130-400); Red Blood Count 5.04 10^6/uL (4.1-5.3); Red Cell Distribution Width 13.1 % (12.1-15.1); White Blood Count 15.2 10^3/uL (4.0-10.0)
[2022-07-18 05:05] LABS: Alanine Aminotransferase 17 U/L (0-33); Albumin Level 4.4 g/dL (3.5-5.2); Alkaline Phosphatase 152 U/L (35-105); Aspartate Amino Transferase 21 U/L (0-32); Blood Urea Nitrogen 13 mg/dL (8-23); Calcium 9.8 mg/dL (8.5-10.5); Carbon Dioxide 24 mmol/L (22-29); Chloride 101 mmol/L (98-107); Globulin 3.5 g/dL (1.3-4.6); Glucose 132 mg/dL (65-115); Lipase 14 U/L (13-60); Osmolality Calculated 290 mOsm/kg (285-295); Sodium 139 mmol/L (136-145); Total Bilirubin 0.6 mg/dL (0.15-1.2); Total Protein 7.9 g/dL (6.6-8.7)
[2022-07-18 05:10] LABS: Anion Gap 18.1 (5-19); Potassium 4.1 mmol/L (3.5-5.1)
[2022-07-18] MEDS: piperacillin-tazobactam 3.375 GM in sodium chloride 0.9% (plus) 50 ML IV ×3 (05:22→19:49)
[2022-07-18 06:37] LABS: Add Urine Microscopic? YES; Bilirubin Urine Neg (Negative); Blood Urine 2+ (Negative); Glucose Urine UA Norm (Normal); Ketones Urine 1+ (Negative); Leukocyte Esterase Urine Negative (Negative); Nitrate Urine Negative (Negative); Protein Urine 1+ (Negative); Urine Appearance Clear (CLEAR); Urine Color Yellow (Yellow); Urobilinogen Urine 1 mg/dL (Negative); pH Urine 5 (5-7)
[2022-07-18 06:39] LABS: Add Urine Culture? No; Bacteria Urine TRACE /hpf; Mucus Urine 2+ /hpf; Squamous Epithelial Cell Urine 0-4 /hpf (0-5); WBC Urine 0-4 /hpf (0-5)
--- NOTE | 2022-07-18 08:18 | P.CONIM_ITS ---
Providers/Reason For Consult Consulting Physician/Specialty*: General Surgery/Erik Sosa MD, FACS, RPVI Reason for Consult*: Abdominal pain Attending Physician: Jonh Lee MD Primary Care Provider: GIFTY Davenport History of Present Illness History of Present Illness Lainey Peña is a 72 year old female She developed abdominal pain on Sunday evening. Pain was located in the right upper quadrant, sharp, constant, moving around makes it worse. Denies nausea or vomiting. She had episode of chills. No diarrhea. Because pain did not improve, she decided to come to the emergency room. She had similar episodes of pain in the past, about 4 episodes in total over the last year. She was diagnosed with gallstones earlier. Her first episode was about a year ago, at this time she was worked up for a chest pain by her screener and blender operator, Dr. Cole. She underwent a stress test which showed small area of reversible ischemia. No angiogram was performed. The patient also had an ultrasound of the arteries of the lower extremities which showed peripheral vascular disease. History of hypertension. Hyperlipidemia. Obesity. All stable and well- controlled. She gained some weight recently. Denies any chest pain, shortness of breath with physical exertion. She can walk a flight of stairs, however, gets easily tired with physical exercise. She cannot walk a mile. She will get too tired. She is in the process of evaluation of ovarian cyst. She is scheduled for an ultrasound. Review of Systems Narrative: 10 point review of systems is negative except as per HPI Medications/Allergies Home Medications Medication Instructions Recorded Confirmed Last Taken Type furosemide 40 mg tablet 40 - 80 mg PO DAILY PRN edema 03/28/21 07/18/22 Unknown History nitroglycerin 0.4 mg sublingual 0.4 mg sublingual Q5M PRN chest 03/28/21 07/18/22 Unknown Rx tablet pain 30 days #30 tabs allopurinol 100 mg tablet 100 mg PO QAM 12/15/21 07/18/22 Unknown History carvedilol 3.125 mg tablet 3.125 mg PO BID #60 tabs 12/15/21 07/18/22 Unknown Rx amlodipine 10 mg tablet 10 mg PO QAM 07/18/22 07/18/22 Unknown History fluticasone propionate 50 1 - 2 spray intranasal DAILY PRN 07/18/22 07/18/22 Unknown History mcg/actuation nasal Allergy Symptoms spray,suspension ibuprofen 200 mg tablet 800 mg PO Q8H PRN Pain 07/18/22 07/18/22 Unknown History lisinopril 40 mg tablet 40 mg PO QAM 07/18/22 07/18/22 Unknown History lovastatin 10 mg tablet 10 mg PO QPM 07/18/22 07/18/22 Unknown History meloxicam 15 mg tablet 15 mg PO QAM 07/18/22 07/18/22 Unknown History Allergies Allergy/AdvReac Type Severity Reaction Status Date / Time codeine AdvReac nausea--can Verified 07/18/22 07:43 take hydrocodone tramadol AdvReac N/V Verified 07/18/22 07:43 PFSH Acute PFSH: Medical History Dyslipidemia Diagnosed in her 60s and is on medication managed by her primary care pro vider Gout Hypertension Diagnosed in her 60s and is controlled on medication managed by her primary care provider. She also sees Dr. Cloe No pertinent past medical history Denies diabetes, asthma, seizures, DVT/PE PCP: Dr. Worley Obesity Ovarian cyst Peripheral arterial disease Surgical History S/P bilateral cataract extraction S/P right knee surgery Laser surgery for torn ligament, performed in approximately 2018 Family History Mother Heart disease Father Heart disease Brother Stroke Sister Hypertension x 2 Denies family history of Colon cancer Ovarian cancer Diabetes Breast cancer Uterine cancer Thyroid condition Social History Smoking and tobacco status: never smoked Vitals/I&O/Wt Last Vital Signs Temp 98.3 F 07/18/22 04:01 Pulse 76 07/18/22 06:40 Resp 16 07/18/22 06:40 BP 183/75 07/18/22 06:40 Pulse Ox 95 07/18/22 06:40 O2 Del Method 07/18/22 06:40 07/17/22 07/18/22 07/18/22 22:59 06:59 14:59 Intake Total 50 / 50 Balance 50 / 50 Weight last 48 hrs Weight 270 lb Physical Exam Narrative: General: No acute distress Psych: [AAOx3] Eyes: [sclerae are white] Head/ENT: [normocephalic, symmetric] CV: [regular] pulse, [not tachychardic], no JVD, blood pressure is elevated Lungs: [symmetrical chest rise] Abdomen: [soft, ND, tender to palpation in the right upper quadrant. No peritoneal signs. Obese.] Ext: [no obvious traumatic deformities] Skin: warm Data : 07/18/22 04:20 07/18/22 04:20 Other data: I reviewed radiology report and ultrasound images. Consistent with acute cholecystitis. Common bile duct is at the higher normal size for her age. LFTs are essentially normal. No evidence of choledocholithiasis. A&P Assessment and plan (1) Acute cholecystitis: (2) Coronary artery disease: (3) Peripheral arterial disease: (4) Ovarian cyst: (5) Benign essential hypertension with target blood pressure below 140/90: (6) Dyspnea on exertion: (7) Dyslipidemia: Plan Natural history of acute calculus cholecystitis was discussed with the patient. We discussed surgical procedure, and alternative treatment including placement of the cholecystostomy tube. The patient is agreeable to proceed with a laparoscopic cholecystectomy with IOC. Risks and benefits of surgery were discussed including complications like bleeding, infection, damage to surrounding structures, complications related to general anesthesia, blood clots, and . The patient is obese, she does have acute cholecystitis, expect her surgery to be more complicated than average cholecystectomy. She is also 72-year-old and for functional reserve is limited. Given recent findings of reversible ischemia on the stress test, I would consult cardiology to obtain preoperative risk stratification. If cleared by cardiology we will proceed with surgery today. Coronary artery disease and peripheral arterial disease. She is not on any aspirin at this time. I will defer management to medicine and cardiology. Plan to start DVT prophylaxis In the postoperative period, she is at high risk for DVT. The patient is tired with minimal physical exertion, it may be equivalent of a coronary artery disease, as mentioned above, I will consult cardiology. Ovarian cyst, if available, I will have a look laparoscopically and take a picture. Otherwise, continue elective evaluation with ultrasound under the guidance of the primary care and gynecology. -N.p.o., IV fluids, pain control, Zosyn IV. Coding Level of Care Code Acute Letter Of Credit Document Examiner for g Fwd Diagnoses Acute cholecystitis K81.0 Coronary artery disease I25.10 Peripheral arterial disease I73.9 Ovarian cyst N83.209 Benign essential hypertension with target blood pressure below 140/90 I10 Dyspnea on exertion R06.00 Dyslipidemia E78.5
--- NOTE | 2022-07-18 08:35 | PM.CONSULT ---
Providers/Reason For Consult Consulting Physician/Specialty*: YADY Cole MD/cardiology Reason for Consult*: Patient with abnormal stress test/preop evaluation Attending Physician: Jonh Lee MD Primary Care Provider: GIFTY Davenport History of Present Illness History of Present Illness Lainey Peña is a 72 year old female has a history of hypertension, atrial arrhythmia and dyslipidemia. She had an episode of chest pain several months ago, lasting for 8 minutes. Apparently she has not had any recurrence of chest pain since then. Her EKG showed sinus rhythm with poor R wave progression, LVH and left axis deviation. She had a Myocardial perfusion imaging which revealed a subtle area of reversible defect in the inferolateral wall region. The reliability of this finding is somewhat questionable because of some inconsistencies. Since the area of ischemia is very small and also since the patient has not had any recurrence of chest pain, it was decided to continue the risk modifying measures. According the patient, she has not had any recurrence of chest pain, unusual shortness of breath, unusual fatigue or any other specific complaints. She is presenting with acute onset of right upper quadrant pain since last evening. She is diagnosed with acute cholecystitis. Has no fever or chills. No cough or shortness of breath. No other specific complaints. Patient's mother of myocardial infarction at the age of 62.? Father had a myocardial infarction in his 70s.? Patient is known to have high blood pressure dyslipidemia at least for the last 10 years.? No history for any CVA.? She has a history of peripheral artery disease, based on an aortogram with runoff done in June 2019. Medications/Allergies Home Medications Medication Instructions Recorded Confirmed Last Taken Type furosemide 40 mg tablet 40 - 80 mg PO DAILY PRN edema 03/28/21 07/18/22 Unknown History nitroglycerin 0.4 mg sublingual 0.4 mg sublingual Q5M PRN chest 03/28/21 07/18/22 Unknown Rx tablet pain 30 days #30 tabs allopurinol 100 mg tablet 100 mg PO QAM 12/15/21 07/18/22 Unknown History carvedilol 3.125 mg tablet 3.125 mg PO BID #60 tabs 12/15/21 07/18/22 Unknown Rx amlodipine 10 mg tablet 10 mg PO QAM 07/18/22 07/18/22 Unknown History fluticasone propionate 50 1 - 2 spray intranasal DAILY PRN 07/18/22 07/18/22 Unknown History mcg/actuation nasal Allergy Symptoms spray,suspension ibuprofen 200 mg tablet 800 mg PO Q8H PRN Pain 07/18/22 07/18/22 Unknown History lisinopril 40 mg tablet 40 mg PO QAM 07/18/22 07/18/22 Unknown History lovastatin 10 mg tablet 10 mg PO QPM 07/18/22 07/18/22 Unknown History meloxicam 15 mg tablet 15 mg PO QAM 07/18/22 07/18/22 Unknown History Allergies Allergy/AdvReac Type Severity Reaction Status Date / Time codeine AdvReac nausea--can Verified 07/18/22 07:43 take hydrocodone tramadol AdvReac N/V Verified 07/18/22 07:43 PFSH Acute PFSH: Medical History Dyslipidemia Diagnosed in her 60s and is on medication managed by her primary care provider Gout Hypertension Diagnosed in her 60s and is controlled on medication managed by her primary care provider. She also sees Dr. Cole No pertinent past medical history Denies diabetes, asthma, seizures, DVT/PE PCP: Dr. Worley Obesity Ovarian cyst Peripheral arterial disease Surgical History S/P bilateral cataract extraction S/P right knee surgery Laser surgery for torn ligament, performed in approximately 2018 Family History Mother Heart disease Father Heart disease Brother Stroke Sister Hypertension x 2 Denies family history of Colon cancer Ovarian cancer Diabetes Breast cancer Uterine cancer Thyroid condition Social History Smoking and tobacco status: never smoked Vitals/I&O/Wt Last Vital Signs Temp 98.3 F 07/18/22 04:01 Pulse 76 07/18/22 06:40 Resp 16 07/18/22 06:40 BP 183/75 07/18/22 06:40 Pulse Ox 95 07/18/22 06:40 O2 Del Method 07/18/22 06:40 07/17/22 07/18/22 07/18/22 22:59 06:59 14:59 Intake Total 50 / 50 Balance 50 / 50 Weight last 48 hrs Weight 270 lb Physical Exam Narrative: GENERAL: The patient is alert and oriented times three. Not in any acute distress. Obese HEENT: No significant pallor, icterus or lymphadenopathy.Oral cavity: There are no mucous membrane lesions. NECK: Trachea appears to be central. No masses noted. No JVD or thyromegaly appreciated. RESPIRATORY: Chest is symmetrical. No intercostals muscle retraction or any accessory muscle activation. There is no chest wall tenderness. Breath sounds are heard bilaterally. No rales or rhonchi heard. No evidence of any consolidation. BREASTS: Deferred. HEART: The heart sounds are normal. No S3 or S4. No significant murmurs. No pericardial rub ABDOMEN: No vessel pulsations or distention. Right upper quadrant tenderness present. No organomegaly appreciated. Bowel sounds are normally heard. : Deferred. RECTAL: Deferred. LYMPHATIC: No lymphadenopathy noted in the neck. EXTREMITIES: No edema or cyanosis. No clubbing. MUSCULOSKELETAL: No acute joint deformities or swelling SKIN: There are no significant rashes or ecchymosis NEUROPSYCHIATRIC: The patient is alert and oriented x3. Appears to be in a good mood. No tremors or rigidity noted. Data : 07/18/22 04:20 07/18/22 04:20 Other Labs: Laboratory Last Values WBC 15.2 10^3/uL (4.0-10.0) H 07/18/22 04:20 RBC 5.04 10^6/uL (4.1-5.3) 07/18/22 04:20 Hgb 15.0 g/dL (11.5-15.3) 07/18/22 04:20 Hct 46.3 % (37.0-47.0) 07/18/22 04:20 MCV 91.9 fl (81-99) 07/18/22 04:20 MCH 29.8 pg (28.0-34.0) 07/18/22 04:20 MCHC 32.4 g/dL (30.0-36.0) 07/18/22 04:20 RDW 13.1 % (12.1-15.1) 07/18/22 04:20 Plt Count 238 10^3/cmm (130-400) 07/18/22 04:20 MPV 11.6 fL (7.4-10.4) H 07/18/22 04:20 Neut % (Auto) 83.9 % 07/18/22 04:20 Lymph % (Auto) 9.3 % 07/18/22 04:20 [place] % (Auto) 5.5 % 07/18/22 04:20 Eos % (Auto) 0.5 % 07/18/22 04:20 Baso % (Auto) 0.3 % 07/18/22 04:20 Neut # (Auto) 12.72 10^3/uL (1.8-7.7) H 07/18/22 04:20 Lymph # (Auto) 1.4 10^3/uL (0.8-4.8) 07/18/22 04:20 [place] # (Auto) 0.8 10^3/uL (0.2-0.9) 07/18/22 04:20 Eos # (Auto) 0.1 10^3/uL (0.0-0.8) 07/18/22 04:20 Baso # (Auto) 0.1 10^3/uL (0.0-0.1) 07/18/22 04:20 Nucleated RBC % (auto) 0 % 07/18/22 04:20 Nucleated RBCs # 0.0 /100WBC 07/18/22 04:20 Sodium 139 mmol/L (136-145) 07/18/22 04:20 Potassium 4.1 mmol/L (3.5-5.1) 07/18/22 04:20 Chloride 101 mmol/L (98-107) 07/18/22 04:20 Carbon Dioxide 24 mmol/L (22-29) 07/18/22 04:20 Anion Gap 18.1 (5-19) 07/18/22 04:20 BUN 13 mg/dL (8-23) 07/18/22 04:20 Creatinine 0.6 mg/dL (0.5-0.9) 07/18/22 04:20 GFR Calculation Not Reportable 07/18/22 04:20 Glucose 132 mg/dL (65-115) H 07/18/22 04:20 Calculated Osmolality 290 mOsm/kg (285-295) 07/18/22 04:20 Calcium 9.8 mg/dL (8.5-10.5) 07/18/22 04:20 Total Bilirubin 0.6 mg/dL (0.15-1.2) 07/18/22 04:20 AST 21 U/L (0-32) 07/18/22 04:20 ALT 17 U/L (0-33) 07/18/22 04:20 Alkaline Phosphatase 152 U/L (35-105) H 07/18/22 04:20 Total Protein 7.9 g/dL (6.6-8.7) 07/18/22 04:20 Albumin 4.4 g/dL (3.5-5.2) 07/18/22 04:20 Globulin 3.5 g/dL (1.3-4.6) 07/18/22 04:20 Lipase 14 U/L (13-60) 07/18/22 04:20 Urine Color Yellow (Yellow) 07/18/22 06:01 Urine Appearance Clear (CLEAR) 07/18/22 06:01 Urine pH 5 (5-7) 07/18/22 06:01 Ur Specific [place] 1.020 (1.005-1.030) 07/18/22 06:01 Urine Protein 1+ (Negative) H 07/18/22 06:01 Urine Glucose (UA) Norm (Normal) 07/18/22 06:01 Urine Ketones 1+ (Negative) H 07/18/22 06:01 Urine Blood 2+ (Negative) H 07/18/22 06:01 Urine Nitrate Negative (Negative) 07/18/22 06:01 Urine Bilirubin Neg (Negative) 07/18/22 06:01 Urine Urobilinogen 1 mg/dL (Negative) H 07/18/22 06:01 Ur Leukocyte Esterase Negative (Negative) 07/18/22 06:01 Urine RBC 5-10 /hpf (0-2) H 07/18/22 06:01 Urine WBC 0-4 /hpf (0-5) H 07/18/22 06:01 Ur Squamous Epith Cells 0-4 /hpf (0-5) H 07/18/22 06:01 Amorphous Sediment Not Reportable 07/18/22 06:01 Urine Bacteria Trace /hpf (NONE) 07/18/22 06:01 Urine Mucus 2+ /hpf 07/18/22 06:01 Other Imaging: My impression: 1. Small sized perfusion abnormality of mild severity of basal to mid ?inferolateral, apical lateral, apical inferior and apical ding? with subtle ?reversibility in the infero-lateral wall. ?2. This may represent attenuation artifact given improved tracer uptake on ?prone imaging.? However small area of ischemia in circumflex artery territory ?cannot be completely ruled out. ?3. Overall left ventricular systolic function is low normal without regional ?wall motion abnormalities, LVEF=53%. ?4. EKG portion of the study will be reported separately. ?5. No prior similar studies to compare. Echo: My impression: Echocardiogram done on 04/06/2022 1. Normal left ventricular size, systolic function and wall ?thickness, with no regional wall motion abnormalities. Left ?ventricular ejection fraction is estimated at 60 %. Grade II ?diastolic dysfunction, moderately elevated filling pressures. ?2. Normal right ventricular size and systolic function. ?3. Mild tricuspid valve regurgitation. ?4. Pulmonary artery pressure estimated at 34 mm Hg. ?5. No prior similar studies to compare. EKG 1: My Interpretation: The EKG showed a sinus rhythm with a heart rate of 71 bpm. Voltage criteria for LVH. Left axis deviation. Poor R wave progression. No acute ST-T changes. EKG computer-generated impression: Gallbladder Ultrasound 07/18/22 04:09 IMPRESSION: 1. Cholelithiasis, with prominent gallbladder distention, see additional details above. 2. Borderline/mild biliary tree dilation for age, see above discussion. 3. Other findings discussed above. A&P Assessment and plan (1) Abnormal stress test: The results of the patient's stress test was discussed with the patient in detail. The area of ischemia is very small. The reliability of the finding is somewhat questionable. Patient apparently has no chest pain at this time. The EKG and echocardiogram are unremarkable for any acute ischemia. However in view of her multiple risk factors, possibility of her having underlying coronary artery disease is a likely possibility. For further evaluation of her coronary status, she requires a cardiac catheterization. However since she seems to be stable, asymptomatic with a no evidence of ongoing ischemia, it would be appropriate to hold off on any further investigations at this point. I discussed this in detail with the patient and her which they understood well. Her cardiac risk is minimal to moderate. Patient is willing to take this risk and go ahead with the surgery for the acute cholecystitis. She seems understand implications. (2) Acute cholecystitis: Management as per the surgeon (3) Dyslipidemia: May continue on the current medications. (4) Benign essential hypertension with target blood pressure below 140/90: The blood pressure is currently of stage II. The pain could be partly causing the blood pressure elevation. This needs to be closely monitored. Plan May go ahead and do a troponin T on the blood in the lab. If the troponin T is normal, may go ahead with the proposed surgery. 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
--- NOTE | 2022-07-18 08:36 | P.HP_ITS ---
Providers/Chief Complaint Admitting Physician: Penny Lawton MD Primary Care Provider: GIFTY Davenport Chief Complaint: abd pain History of Present Illness Lainey Peña is a 72 year old female who presents to the emergency department with complaints of right upper quadrant pain. This can also be in her epigastric area. She has had about 4 5 times in the last year. She believes it may be related to gallstones. She has some nausea but no vomiting. She has had no fever. She reports no chest discomfort, or exertional symptoms of chest discomfort and since her nuclear stress test and cardiology visit in November. She reports no issues with anesthesia with a knee operation she had with Dr. Ramsey in the past. She reports she has not been diagnosed with obstructive sleep apnea but think she likely has it. No family history of anesthesia reactions. There was concern in the emergency department for acute cholecystitis. She was given Zosyn and a surgery consultation was obtained. She also received nausea medicine and Dilaudid. Gallbladder ultrasound showed cholelithiasis with gallbladder distention. Review of Systems General: Reports: 10 or more systems reviewed and unremarkable except in HPI and below Const: Denies: fever(s), chills or fatigue Eyes: Denies: change in vision ENMT: Denies: throat pain Card: Denies: chest pain or palpitations Resp: Denies: dyspnea GI: Reports: abdominal pain and nausea; Denies: vomiting, hematochezia or melena : Denies: flank pain Musc: Denies: neck pain Skin/Breast: Denies: rash Neuro: Denies: headache(s) Psych: Denies: anxiety or depression Endo: Denies: polyuria Óscar/Lymph: Denies: easy bruising All/Imm: Denies: urticaria Medications/Allergies Home Medications Medication Instructions Recorded Confirmed Last Taken Type furosemide 40 mg tablet 40 - 80 mg PO DAILY PRN edema 03/28/21 07/18/22 Unknown History nitroglycerin 0.4 mg sublingual 0.4 mg sublingual Q5M PRN chest 03/28/21 07/18/22 Unknown Rx tablet pain 30 days #30 tabs allopurinol 100 mg tablet 100 mg PO QAM 12/15/21 07/18/22 Unknown History carvedilol 3.125 mg tablet 3.125 mg PO BID #60 tabs 12/15/21 07/18/22 Unknown Rx amlodipine 10 mg tablet 10 mg PO QAM 07/18/22 07/18/22 Unknown History fluticasone propionate 50 1 - 2 spray intranasal DAILY PRN 07/18/22 07/18/22 Unknown History mcg/actuation nasal Allergy Symptoms spray,suspension ibuprofen 200 mg tablet 800 mg PO Q8H PRN Pain 07/18/22 07/18/22 Unknown History lisinopril 40 mg tablet 40 mg PO QAM 07/18/22 07/18/22 Unknown History lovastatin 10 mg tablet 10 mg PO QPM 07/18/22 07/18/22 Unknown History meloxicam 15 mg tablet 15 mg PO QAM 07/18/22 07/18/22 Unknown History Allergies Allergy/AdvReac Type Severity Reaction Status Date / Time codeine AdvReac nausea--can Verified 07/18/22 07:43 take hydrocodone tramadol AdvReac N/V Verified 07/18/22 07:43 PFSH Acute PFSH: Medical History (Updated 07/18/22 @ 08:40 by Jonh Lee MD) Dyslipidemia Diagnosed in her 60s and is on medication managed by her primary care p rovider Gout Hypertension Diagnosed in her 60s and is controlled on medication managed by her primary care provider. She also sees Dr. Cole No pertinent past medical history Denies diabetes, asthma, seizures, DVT/PE PCP: Dr. Worley Obesity Ovarian cyst Peripheral arterial disease Surgical History S/P bilateral cataract extraction S/P right knee surgery Laser surgery for torn ligament, performed in approximately 2018 Family History Mother Heart disease Father Heart disease Brother Stroke Sister Hypertension x 2 Denies family history of Colon cancer Ovarian cancer Diabetes Breast cancer Uterine cancer Thyroid condition Social History Smoking and tobacco status: never smoked Vitals/I&O/Wt Last Vital Signs Temp 98.3 F 07/18/22 04:01 Pulse 76 07/18/22 06:40 Resp 16 07/18/22 06:40 BP 183/75 07/18/22 06:40 Pulse Ox 95 07/18/22 06:40 O2 Del Method 07/18/22 06:40 07/17/22 07/18/22 07/18/22 22:59 06:59 14:59 Intake Total 50 / 50 Balance 50 / 50 Weight last 48 hrs Weight 122.47 kg Physical Exam Narrative: General exam is no distress, but does complain of right upper quadrant pain. HEENT: Pupils equally round. Atraumatic and normocephalic. Oropharynx clear. Neck is supple no lymphadenopathy thyromegaly Cardiovascular regular rate and rhythm without murmur, no S3 or S4 Lungs clear no wheezing or crackles Abdomen is soft. Tenderness right upper quadrant. No obvious organomegaly. Obese. exams deferred Extremities no cyanosis clubbing. Trace edema is present bilaterally Skin no rash Neuro no obvious focal deficits. Data : 07/18/22 04:20 07/18/22 04:20 Other Labs: Gallbladder ultrasound demonstrates cholelithiasis, prominent gallbladder distention, borderline biliary tree dilation. Gallbladder wall is thick LFTs are normal with the exception of alk phos of 152 Glucose slightly elevated Urinalysis 5-10 red blood cells otherwise negative EKG demonstrates sinus rhythm, left axis deviation, poor R wave progression unchanged from previous EKG Echocardiogram demonstrated normal LV function, 2/4 diastolic dysfunction, mild TR, pulmonary artery pressure of March. Sestamibi may be test done about that same time demonstrated a small size perfusion abnormality with subtle reversibility inferior lateral wall, attenuation versus a small area of ischemia. This was followed and continues to be followed by cardiology and patient has had no recurrent symptoms. A&P Assessment and plan (1) Acute cholecystitis: Patient presents with right upper quadrant pain, intermittent attacks over the last year, most consistent with her cholelithiasis. Continue Zosyn Appreciate surgical consultation N.p.o. currently (2) Abnormal stress test: Patient with abnormal stress test in the past, currently being treated medically. Patient has no changes in her EKG Patient with no symptoms of chest discomfort or exertional related symptoms. She reports she is able to walk around [employer], go up 2 flights of steps slowly but without symptoms. I do not see any direct contraindications for surgery based upon this. Cardiology consult has been asked for by general surgery, and they have contacted Dr. Cole. This is for preoperative clearance considering her abnormal stress test in the past. (3) Ovarian cyst: Patient with history of ovarian cyst followed by gynecology. Plan Hyperglycemia. Check hemoglobin A1c, TSH Multiple other medical problems as outlined in past medical history Full code SCDs for DVT prophylaxis, to be converted to Lovenox following surgery. Discontinue NSAIDS, initiate ASA low dose to her home regimen. 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
[2022-07-18] MEDS: famotidine 20 mg/2 mL INJ IVP ×2 (09:08→21:24)
[2022-07-18] MEDS: sodium chloride 0.9% 1,000 ML 75 ML IV (09:08)
[2022-07-18] MEDS: morphine 4 mg/mL SDV 1 mL 2 MG IVP ×2 (09:12→21:25)
[2022-07-18 10:12] LABS: Troponin T (5th) Once 11 ng/L (0-10)
--- NOTE | 2022-07-18 11:17 | PC.NURSE ---
Pt taken to surgery at 1114
--- NOTE | 2022-07-18 11:23 | ANES.PREANE2 ---
Pre-Anesthetic Assessment Height/Weight: Height 1.6 m Weight 122.47 kg Temp Pulse Resp BP Pulse Ox O2 Del Method 98.3 F 66 17 148/71 97 07/18/22 04:01 07/18/22 11:19 07/18/22 09:12 07/18/22 11:19 07/18/22 08:38 07/18/22 06:40 Operation Date: 07/18/22 12:30 Proposed Procedures p Laparoscopic Cholecystectomy(Not Applicable) - Erik Sosa MD Familial anesthetic complications: None Was Beta Nancy taken within 24 hours: Yes Was Clonidine taken within 24 hours: N/A Last intake: Intake Last Liquid Date 07/17/22 Last Liquid Time 17:00 Last Solid Date 07/17/22 Last Solid Time 17:00 Social No alcohol and No tobacco Exam alert, oriented x 3, clear to auscultation bilaterally and regular rate & rhythm Airway Mallampati: Class IV Dentition: full CV/HEM Hypertension and Peripheral Vascular Disease Metabolic Hyperlipidemia and Morbid Obesity Anesthetic Plan ASA status: 3 Anesthesia: General Risk of > 500 ml blood loss (7ml/kg in children): No Medications/Allergies Home Medications Medication Instructions Recorded Confirmed Last Taken Type furosemide 40 mg tablet 40 - 80 mg PO DAILY PRN edema 03/28/21 07/18/22 Unknown History nitroglycerin 0.4 mg sublingual 0.4 mg sublingual Q5M PRN chest 03/28/21 07/18/22 Unknown Rx tablet pain 30 days #30 tabs allopurinol 100 mg tablet 100 mg PO QAM 12/15/21 07/18/22 Unknown History carvedilol 3.125 mg tablet 3.125 mg PO BID #60 tabs 12/15/21 07/18/22 Unknown Rx amlodipine 10 mg tablet 10 mg PO QAM 07/18/22 07/18/22 Unknown History fluticasone propionate 50 1 - 2 spray intranasal DAILY PRN 07/18/22 07/18/22 Unknown History mcg/actuation nasal Allergy Symptoms spray,suspension ibuprofen 200 mg tablet 800 mg PO Q8H PRN Pain 07/18/22 07/18/22 Unknown History lisinopril 40 mg tablet 40 mg PO QAM 07/18/22 07/18/22 Unknown History lovastatin 10 mg tablet 10 mg PO QPM 07/18/22 07/18/22 Unknown History meloxicam 15 mg tablet 15 mg PO QAM 07/18/22 07/18/22 Unknown History Allergies Allergy/AdvReac Type Severity Reaction Status Date / Time codeine AdvReac nausea--can Verified 07/18/22 07:43 take hydrocodone tramadol AdvReac N/V Verified 07/18/22 07:43 Current Medications Generic Name Dose Route Start Last Admin Trade Name Freq PRN Reason Stop Dose Admin Famotidine 20 mg 07/18/22 09:00 07/18/22 09:08 Famotidine 20 Mg/2 Ml Inj IVP 20 mg Q12H LORNA Administration Sodium Chloride 1,000 mls @ 75 mls/hr 07/18/22 09:00 07/18/22 09:08 Sodium Chloride 0.9% IV 75 mls/hr .[id number] LORNA Administration Morphine Sulfate 2 mg 07/18/22 08:49 07/18/22 09:12 Morphine 4 Mg/Ml Sdv 1 Ml IVP 2 mg Q4H PRN Administration SEVERE PAIN PFSH Anesthesia Medical History Dyslipidemia Diagnosed in her 60s and is on medication managed by her primary care provider Gout Hypertension Diagnosed in her 60s and is controlled on medication managed by her primary care provider. She also sees Dr. Cole No pertinent past medical history Denies diabetes, asthma, seizures, DVT/PE PCP: Dr. Worley Obesity Ovarian cyst Peripheral arterial disease Surgical History S/P bilateral cataract extraction S/P right knee surgery Laser surgery for torn ligament, performed in approximately 2018 Family History Mother Heart disease Father Heart disease Brother Stroke Sister Hypertension x 2 Denies family history of Colon cancer Ovarian cancer Diabetes Breast cancer Uterine cancer Thyroid condition Social History Smoking and tobacco status: never smoked Data Anesthesia : 07/18/22 04:20 07/18/22 04:20 Short CBC 07/18/22 Range/Units 04:20 WBC 15.2 H (4.0-10.0) 10^3/uL Hgb 15.0 (11.5-15.3) g/dL Hct 46.3 (37.0-47.0) % MCV 91.9 (81-99) fl Plt Count 238 (130-400) 10^3/cmm Neut % (Auto) 83.9 % Neut # (Auto) 12.72 H (1.8-7.7) 10^3/uL BMP 07/18/22 04:20 Sodium 139 Potassium 4.1 Chloride 101 Carbon Dioxide 24 BUN 13 Creatinine 0.6 Glucose 132 H Calcium 9.8 Cardiac Enzymes 07/18/22 Range/Units 04:20 Troponin T Gen 5 ng/L 11 H (0-10) ng/L Liver Function 07/18/22 Range/Units 04:20 Total Bilirubin 0.6 (0.15-1.2) mg/dL AST 21 (0-32) U/L ALT 17 (0-33) U/L Alkaline Phosphatase 152 H (35-105) U/L Albumin 4.4 (3.5-5.2) g/dL Urine 07/18/22 Range/Units 06:01 Urine Color Yellow (Yellow) Urine Appearance Clear (CLEAR) Urine pH 5 (5-7) Ur Specific [place] 1.020 (1.005-1.030) Urine Protein 1+ H (Negative) Urine Glucose (UA) Norm (Normal) Urine Ketones 1+ H (Negative) Urine Nitrate Negative (Negative) Urine Bilirubin Neg (Negative) Ur Leukocyte Esterase Negative (Negative) Urine RBC 5-10 H (0-2) /hpf Urine WBC 0-4 H (0-5) /hpf Cardiac Studies: Echocardiogram 04/06/21 Sestamibi Stress Test (Cardiology) 04/18/21
[2022-07-18 11:49] LABS: Estmated Average Glucose 108; Hemoglobin A1C 5.4 % (4.0-6.0)
[2022-07-18 11:59] LABS: Thyroid Stimulating Hormone 1.53 uIU/mL (0.27-4.20)
[2022-07-18] MEDS: iohexol 300 mg/mL 50 mL Btl (OR ONLY) XX (14:18)
--- NOTE | 2022-07-18 16:18 | P.OP_ITS ---
Operative Report Date of procedure: Preoperative diagnosis: Acute calculus cholecystitis_. Postoperative diagnosis: Acute calculus cholecystitis. Umbilical hernia 1.5 cm_. Procedure: Laparoscopic cholecystectomy (CPT 30214; CPT 94387, mod 26; mod 22) Surgeon: Erik Sosa MD Start/End time: please, see nursing documentation. Civil Attorney: none Anesthesia: General Endotracheal Anesthesiologist/SHOWROOM SALES CONSULTANT: please, see anesthesia documentation. EBL, ml: 50 ml Specimen: gallbladder, submitted to pathology Complications: Unable to perform IOC, small tear in the cystic duct from the inflammation of the Arrow balloon 0.6 milliliters Findings: Acute cholecystitis. Extreme hepatomegaly, very difficult to retract the gallbladder port to expose the hepatoduodenal ligament. Liver is very fragile and tears and bleeds with minimal manipulations. Cystic duct was very short, however, unable to insert the IOC catheter into the cystic duct. There was a small umbilical hernia, 1.5 cm in size, I did not see it preoperatively because of the obesity. []_ Indications: 72-year-old female_ with a clinical picture of acute cholecystitis_ confirmed by RUQ US . _ We discussed the natural course and management of the disease. We discussed indications for laparoscopic cholecystectomy, including risks and benefits of a surgical procedure. We discussed possible complications, including infection, bleeding, damage to surrounding tissue, intraabdominal abscess, hernia at the incision site, bowel obstruction, deep venous thrombosis, pulmonary embolism, and . We specifically discussed biliary anatomy and the possibility of a common bile duct injury and bile leak with all the associated morbidity and the need for another procedure to repair it. We discussed the possibility of a retained stones and the general principles of ERCP and bile duct exploration. The patient agreed to proceed with laparoscopic cholecystectomy with IOC and signed the informed consent. Details of the procedure: The patient was identified in the holding area and brought to the operating room and positioned supine on the operating table. Sequential compression devices were applied to bilateral lower extremities to prevent deep venous thromboembolism. Subsequently, general endotracheal anesthesia was initiated without any complications. The surgical area was prepped and draped in a regular sterile fashion. TIME OUT: Immediately prior to procedure, time out was performed to include correct patient, agreement on the procedure to be performed, correct side, site, position, accurate procedure consent, relevant images, antibiotics, fluids. Everybody agreed. The skin at the umbilicus was anesthetized with Marcaine and periumbilical incis ion was made and carried down to the fascia. Umbilical hernia was identified, dissected off the umbilicus, from all the surrounding tissue. Hernia sac was opened. The content was preperitoneal fat. It was partially excised, partially pulled back into the abdomen. The absence of intraperitoneal adhesions was confirmed with a finger swipe. A balloon trocar was placed and the abdomen was insufflated to 15 mm Hg. A 10 mm 30 degree angle camera was introduced into the abdomen. Three additional 5mm trocars were placed in the epigastric area and in the RUQ under direct vision. The patient was placed in reversed Trendelenburg position and rotated right side up. The gallbladder was located in the normal anatomic position in the RUQ. It was covered with omentum. It was involved in the inflammatory infiltrate with omentum and transverse colon. Omentum was peeled off and the gallbladder was carefully from the surrounding tissues bluntly. Aspiration needle was used and 60 cc of dark cloudy bile was aspirated and submitted for cultures and sensitivities. The patient has a very large and fragile liver. It was very difficult to retract the gallbladder up because the liver did not feed in the right upper quadrant at all and it was difficult to expose the hepatoduodenal ligament. The liver was bleeding easily with minimal manipulation and was tearing easily. Several small liver tears were made during manipulation and attempts to push the gallbladder up. Eventually I was able to expose the infundibulum. The infundibulum was identified and retracted laterally. The peritoneum was opened with hook cautery over the infundibulum of the gallbladder on the medial and lateral sides. There was severe edema of the hepatoduodenal ligament and infundibulum, tissue were very thick and was oozing easily. An additional 5 mm trocar was placed in the left close to midline to assist with exposure. Upon blunt dissection at the Callot?s triangle I identified the cystic duct and the cystic artery. Both were bluntly dissected circumferentially. A critical view of safety was obtained with only cystic artery and cystic duct coming from the gallbladder to the hepatoduodenal ligament and the liver clearly seen behind the cystic artery and duct. The cystic artery was doubly clipped and divided. The cystic duct was very short, 1 cm at most at length. The cystic duct was clipped at the junction with a gallbladder and a small ductotomy was made below the clip with cold scissors. I was not able to introduce the cholangiogram catheter into the common bile duct. Upon sensation of the balloon of the arrow catheter, the opening of the cystic duct teared and the balloon came out. It seems to be either some kink or obstruction at the distal cystic duct near the CBD. I dissected the cystic duct all the way down to the common bile duct junction and confirmed there is a tear did not extend down onto the cystic duct. At this time, given normal LFTs and difficulties with placing a catheter, I decided to abort the intraoperative cholangiogram. Given that the cystic duct was very short and thick, I placed 2 Endoloops at the base of the cystic duct close to its junction with the common bile duct and then secured it additionally with 2 clips on top. Then I mobilized the gallbladder off the liver bed with hook cautery. There was minimal spillage of bile and from the gallbladder stairs from retraction. There was [no spillage of stones]. The gallbladder was dissected off the liver bed and was placed into the Endocatch bag. The liver bed was inspected. Minor oozing from the liver bed was controlled with bovie cautery. All the blood clots were aspirated. The RUQ and subhepatic space were irrigated with normal saline until clear. All the irrigation fluid was aspirated. I left a 19 Hungarian drain into the liver and gallbladder bed and any other cystic duct stump. All the trocars were removed under direct vision and the abdomen was desufflated. The specimen was removed from the abdomen through the umbilical incision and passed off the field. Given the large size of gallstones, I extended the umbilical facial incision 1 cm up through the linea alba. Umbilical hernia was repaired repaired with with two running 1 PDS sutures. Then the wound was irrigated with saline and injected with Marcaine. Skin incisions were closed primarily with 4-0 Monocryl. Steristrips were applied. The needle, instrument and sponge counts were correct x 2. The patient tolerated the procedure well, was extubated in the OR and was transferred to the recovery in a stable condition.
[2022-07-18] MEDS: labetalol 5 mg/mL SDV 20mL 100 MG (16:46)
[2022-07-18] MEDS: atorvastatin 40 mg Tablet 10 MG PO (17:38)
[2022-07-18] MEDS: carvedilol 3.125 mg Tablet PO (17:38)
--- NOTE | 2022-07-18 18:05 | PC.NURSE ---
Patient resting hard after surgery, 2L NC by RT to maintain sats. Arrived to room at 1720
[2022-07-18] MEDS: acetaminophen 325 mg Tablet 650 MG PO (21:25)
[2022-07-19] VITALS (8 sets, daily range): BP systolic 116–144; BP diastolic 66–75; PULSE 64–84; RESP 12–18; TEMP 36.7–37; O2SAT 80–97
[2022-07-19] MEDS: sodium chloride 0.9% 1,000 ML 75 ML IV (00:28)
[2022-07-19] MEDS: piperacillin-tazobactam 3.375 GM in sodium chloride 0.9% (plus) 50 ML IV ×2 (03:34→12:12)
[2022-07-19] MEDS: morphine 4 mg/mL SDV 1 mL 2 MG IVP (03:35)
[2022-07-19 03:46] LABS: Basophils # 0.1 10^3/uL (0.0-0.1); Basophils % 0.3 %; Eosinophils # 0.1 10^3/uL (0.0-0.8); Eosinophils % 0.6 %; Hematocrit 39.3 % (37.0-47.0); Hemoglobin 12.1 g/dL (11.5-15.3); Lymphocytes # 0.3 10^3/uL (0.8-4.8); Lymphocytes % 2.2 %; Mean Corpuscular HGB Conc 30.8 g/dL (30.0-36.0); Mean Corpuscular Hemoglobin 29.5 pg (28.0-34.0); Mean Corpuscular Volume 95.9 fl (81-99); Mean Platelet Volume 11.7 fL (7.4-10.4); Monocytes # 0.5 10^3/uL (0.2-0.9); Monocytes % 3.6 %; Neutrophils # 13.44 10^3/uL (1.8-7.7); Nucleated Red Blood Cells % 0 %; Platelet Count 185 10^3/cmm (130-400); Red Cell Distribution Width 13.5 % (12.1-15.1); White Blood Count 14.5 10^3/uL (4.0-10.0)
[2022-07-19 04:14] LABS: Alanine Aminotransferase 333 U/L (0-33); Albumin Level 3.2 g/dL (3.5-5.2); Alkaline Phosphatase 184 U/L (35-105); Anion Gap 15.6 (5-19); Aspartate Amino Transferase 308 U/L (0-32); Blood Urea Nitrogen 16 mg/dL (8-23); Carbon Dioxide 23 mmol/L (22-29); Chloride 106 mmol/L (98-107); Globulin 2.7 g/dL (1.3-4.6); Glucose 104 mg/dL (65-115); Osmolality Calculated 293 mOsm/kg (285-295); Potassium 3.6 mmol/L (3.5-5.1); Sodium 141 mmol/L (136-145); Total Bilirubin 5.4 mg/dL (0.15-1.2); Total Protein 5.9 g/dL (6.6-8.7)
--- NOTE | 2022-07-19 06:27 | MR_ITS ---
WS: [id number] MRCP (MAGNETIC RESONANCE CHOLANGIOPANCREATOGRAPHY) HISTORY: Choledocholithiasis COMPARISON: Gallbladder ultrasound 07/18/2022, cholecystectomy 07/18/2022 TECHNIQUE: Multiple sequences are performed to evaluate the intra and extrahepatic ducts. Small bilateral pleural effusions at the lung bases. Since the prior examination the gallbladder has been removed. There is a small fluid collection at th e gallbladder fossa measuring 2.5 x 1.6 cm. No intrahepatic or extrahepatic duct dilatation is eviden t. The common bile duct is measuring 6 to 7 mm throughout its course. Small stones would be difficult to exclude as the patient was unable to hold her breath for this examination and there is significan t motion artifact. There is no intrahepatic duct dilatation and the pancreatic duct is normal. The co mmon bile duct does appear to taper normally towards the pancreatic head. No ascites. There is mild fluid and air distention of the stomach. LEFT renal cyst 2.0 x 2.0 cm. MR/MR MRCP 10701 IMPRESSION: 1. Quality of examination is limited by patient's inability to hold her breath and motion artifact. 2. The common bile duct is measuring top normal to minimally enlarged. Measure s 6 to 7 mm throughout its course to the pancreatic head. No intraluminal filli ng defect is identified. Small common bile duct stones would be difficult to ex clude with this amount of motion. 3. Small fluid collection in the gallbladder bed measures 2.5 x 1.6 cm. Probab ly postop seroma. If pain continues and there is any concern for bile leak HIDA scan may be of value. 4. Very small bilateral pleural effusions.
--- NOTE | 2022-07-19 07:13 | PM.PN ---
Subjective Subjective: No acute events overnight. She feels better overall. Pain is well controlled. She was not out of bed yet. Bilirubin is up to 5.4 Vitals/I&O/Wt Last Vital Signs Temp 98.6 F 07/19/22 03:39 Pulse 78 07/19/22 03:39 Resp 12 07/19/22 03:39 BP 117/67 07/19/22 03:39 Pulse Ox 92 07/19/22 03:39 O2 Del Method 07/18/22 19:32 O2 Flow Rate 6 07/18/22 20:00 07/18/22 07/19/22 07/19/22 22:59 06:59 14:59 Intake Total 1600 / 1650 50 / 1700 Output Total 100 / 100 Balance 1500 / 1550 50 / 1600 Weight last 48 hrs Weight 290 lb 2 oz Weight 270 lb Physical Exam Narrative: General: No acute distress Psych: [AAOx3] Eyes: [sclerae are white] Head/ENT: [normocephalic, symmetric] CV: [regular] pulse, [not tachychardic], no JVD, blood pressure is elevated Lungs: [symmetrical chest rise] Abdomen: [soft, ND, appropriately tender to palpation around the incisions. No peritoneal signs. All wounds are clean dry intact] Ext: [no obvious traumatic deformities] Skin: warm Data : 07/19/22 02:37 07/19/22 02:37 A&P Assessment and plan (1) Acute cholecystitis: (2) Coronary artery disease: (3) Peripheral arterial disease: (4) Ovarian cyst: (5) Benign essential hypertension with target blood pressure below 140/90: (6) Dyspnea on exertion: (7) Dyslipidemia: Plan She is doing well postoperatively. However, her bilirubin is up, concerned about choledocholithiasis, I was not able to perform intraoperative cholangiogram. Unrecognized damage to the bile duct is always a possibility. I will order start MRCP. I will make her n.p.o. right now. I discussed this with the patient and communicated to the primary team. All questions were answered. If there is choledocholithiasis, she will need to be transferred out for ERCP, as the services not available at [facility]. I called MRI department to facilitate MRCP, however, nobody picked up Attestations Medical Necessity Statement*: Post operative period Coding Level of Care Code Acute Call Center Trainer for Chg Fwd Diagnoses Acute cholecystitis K81.0 Coronary artery disease I25.10 Peripheral arterial disease I73.9 Ovarian cyst N83.209 Benign essential hypertension with target blood pressure below 140/90 I10 Dyspnea on exertion R06.00 Dyslipidemia E78.5
[2022-07-19] MEDS: ondansetron 2 mg/ML SDV 2 mL 4 MG IVP (09:53)
[2022-07-19] MEDS: ketorolac 30 mg/mL INJ IVP (09:55)
--- NOTE | 2022-07-19 10:10 | PC.CHAP ---
Pastoral Care Encounter/Spiritual Assessment Type of Contact [] Declined cosmetic maker visit [] Patient/Family/Request visit [] Outpatient visit [] Follow-up visit [] Physician referral [] Code/Alert [x] Routine visit [] Staff referral [] Actively dying [x] Patient sleeping [] Family support [] [] Out of room [] Palliative care [] [] Receiving care in room [] Pre-surgical visit [] Trauma [] Long length of stay [] ICU visit [] Other: Relational/Emotional Strength [] Patient feels connected with others/family/visitors/staff [] Distress [] Loneliness/isolation [] Abandonment Spirituality of Patient [] Person of Brii [] Attends Buddhism of their Brii [] Believes in Prayer [] Reads Bible or Pentecostalism materials [] There are Spiritual issues to be addressed All Around Patternmaker Interventions [x] Prayer [] Active listening [] Non-anxious presence [] Spiritual/emotional support [] Crisis/trauma care [] Spiritual counseling [] Bereavement support [] Provided bereavement packet [] Provided Bible/devotional materials [] Provided toy/stuffed animal, coloring book to patient or family member [] Provided Communion [] Anointing/[place] [] Salvation [] Completed spiritual assessment [] Other: Impact on Illness or Injury [] Angry [] Fearful [] Anxious [] Often cries [] Exhaustion [] Unable to work [] Unable to attend baptism [] Unable to walk/stand [] Unable to read [] Unable to drive [] Unable to eat/drink [] Unable to sleep [] Unable to be with family [] Patient intubated [] Other: Summary Time spent with patient
[2022-07-19] MEDS: acetaminophen 325 mg Tablet 650 MG PO (10:37)
[2022-07-19] MEDS: famotidine 20 mg/2 mL INJ IVP (10:37)
[2022-07-19] MEDS: FUROsemide 10 mg/mL SDV 2mL 20 MG IVP (12:13)
--- NOTE | 2022-07-19 12:44 | P.PN_ITS ---
Subjective Subjective: Lainey was seen earlier today. She was reporting some right upper quadrant pain, but not severe. Medications: Reviewed: Yes Vitals/I&O/Wt Last Vital Signs Temp 98.0 F 07/19/22 11:59 Pulse 75 07/19/22 11:59 Resp 17 07/19/22 11:59 BP 136/67 07/19/22 11:59 Pulse Ox 91 07/19/22 11:59 O2 Del Method 07/19/22 11:59 O2 Flow Rate 6 07/18/22 20:00 07/18/22 07/19/22 07/19/22 22:59 06:59 14:59 Intake Total 1600 / 1650 50 / 1700 50 / 50 Output Total 100 / 100 Balance 1500 / 1550 50 / 1600 50 / 50 Weight last 48 hrs Weight 131.598 kg Weight 122.47 kg Physical Exam Narrative: General exam is no distress Neck is supple no lymphadenopathy thyromegaly Cardiovascular regular rate and rhythm without murmur, no S3 or S4 Lungs clear no wheezing or crackles Abdomen is soft. IRWIN drain noted right upper quadrant without bilious drainage Extremities no cyanosis clubbing. Trace edema is present bilaterally Skin no rash Data : 07/19/22 02:37 07/19/22 02:37 A&P Assessment and plan (1) Acute cholecystitis: Patient presents with right upper quadrant pain, intermittent attacks over the last year, most consistent with her cholelithiasis. Continue Zosyn Appreciate surgical consultation She underwent laparoscopic cholecystectomy on July 18. Intraoperative cholangiogram could not be done secondary to technical reasons. See surgical report. Bilirubin and LFTs significantly elevated today. MRCP inconclusive. Surgery is very concerned regarding retained stones and need for ERCP. Doubt bile leak. HIDA scan not available for today. Transfer arranged with Dr. Frederick Kowalski accepting physician. Patient is stable for transfer. It is unknown when the transfer will occur, either tonight or tomorrow. If she ends up staying until tomorrow could consider HIDA scan at that time. (2) Abnormal stress test: Patient with abnormal stress test in the past, currently being treated medi timbo. Patient has no changes in her EKG Patient with no symptoms of chest discomfort or exertional related symptoms. She reports she is able to walk around [employer], go up 2 flights of steps slowly but without symptoms. I do not see any direct contraindications for surgery based upon this. Cardiology consult was obtained prior to surgery, documenting her risk was minimal and risks and benefits were discussed. (3) Ovarian cyst: Patient with history of ovarian cyst followed by gynecology. Plan Hyperglycemia. Hemoglobin A1c, TSH were checked and normal Multiple other medical problems as outlined in past medical history Full code SCDs for DVT prophylaxis Pepcid prophylactically Attestations Medical Necessity Statement*: Needs continued hospitalization following cholecystectomy secondary to increasing bilirubin, question common bile duct stone with need for ERCP. Coding Level of Care Code Acute Membership Solicitor for Chg Fwd Diagnoses Acute cholecystitis K81.0 Abnormal stress test R94.39 Ovarian cyst N83.209
--- NOTE | 2022-07-19 13:23 | PM.PN ---
Subjective Subjective: MRI results reviewed. Patient was reexamined. She is doing well overall. The pain is much better than yesterday before surgery. IRWIN drain is serosanguineous. No bile. I discussed MRCP results with the patient. I explained for this that I am concerned about small ducts in the bile duct which may not be obvious on MRCP. I think the best next step is to proceed with ERCP. It is not possible to perform a HIDA scan in our hospital today. His eldest day is tomorrow. I think she will be better served in a bigger hospital where all the necessary services are readily available. Patient expressed understanding and agreed with a transfer. In case beds are not available, will recheck CBC, LFTs tomorrow and perform HIDA scan tomorrow a.m. She can have clear liquid diet now, n.p.o. at midnight Vitals/I&O/Wt Last Vital Signs Temp 98.0 F 07/19/22 11:59 Pulse 84 07/19/22 12:50 Resp 17 07/19/22 11:59 BP 136/67 07/19/22 11:59 Pulse Ox 80 L 07/19/22 12:50 O2 Del Method 07/19/22 12:50 O2 Flow Rate 3 07/19/22 12:50 07/18/22 07/19/22 07/19/22 22:59 06:59 14:59 Intake Total 1600 / 1650 50 / 1700 50 / 50 Output Total 100 / 100 Balance 1500 / 1550 50 / 1600 50 / 50 Weight last 48 hrs Weight 290 lb 2 oz Weight 270 lb Data : 07/19/22 02:37 07/19/22 02:37 Attestations Medical Necessity Statement*: Choledocholithiasis Coding Level of Care Code Acute Chief Of Anesthesiology for Alonsog Jesu
[2022-07-19] MEDS: enoxaparin 40 mg/0.4 mL Syringe SUBCUT (14:07)
--- NOTE | 2022-07-19 16:34 | PM.PN ---
Subjective Subjective: Patient apparently underwent laparoscopic cholecystectomy yesterday. She had uneventful postoperative course so far. However her liver enzymes and bilirubin are going up. Possibility of obstructive jaundice is being considered. Since the MRCP was not inclusive she is in the process of being transferred to [facility] for possible ERCP and further intervention. Patient denies any chest pain or shortness of breath. Mainly complaining of right upper quadrant pain. Medications: Medication Review Details: Current Medications Acetaminophen (Acetaminophen 325 Mg Tablet) 650 mg PO Q6H PRN PRN Reason: Mild/Mod Pain Or Temp >/= 101 Last Admin: 07/19/22 10:37 Dose: 650 mg Allopurinol (Allopurinol 100 Mg Tablet) 100 mg PO [facility] Last Admin: 07/19/22 06:45 Dose: Not Given Amlodipine Besylate (Amlodipine 10 Mg Tablet) 10 mg PO [facility] Last Admin: 07/19/22 06:45 Dose: Not Given Carvedilol (Carvedilol 3.125 Mg Tablet) 3.125 mg PO BID [facility] Last Admin: 07/19/22 09:42 Dose: Not Given Enoxaparin Sodium (Enoxaparin 40 Mg/0.4 Ml Syringe) 40 mg SUBCUT Q24H [facility] Last Admin: 07/19/22 14:07 Dose: 40 mg Famotidine (Famotidine 20 Mg/2 Ml Inj) 20 mg IVP Q12H [facility] Last Admin: 07/19/22 10:37 Dose: 20 mg Sodium Chloride (Sodium Chloride 0.9%) 1,000 mls @ 50 mls/hr IV .Q20H [facility] Last Admin: 07/19/22 00:28 Dose: 75 mls/hr Piperacillin Sod/Tazobactam (Sod 3.375 gm/ Sodium Chloride) 50 mls @ 12.5 mls/hr IV Q8H [facility]; Protocol Last Admin: 07/19/22 12:12 Dose: 12.5 mls/hr Lisinopril (L[facility]op[facility] 20 Mg Tablet) [facility] Admin: 07/19/22 06:45 Dose: Not Given Morphine Sulfate (Morphine 4 Mg/Ml Sdv 1 Ml) 2 mg IVP Q4H PRN PRN Reason: SEVERE PAIN Last Admin: 07/19/22 03:35 Dose: 2 mg Ondansetron HCl (Ondansetron 2 Mg/Ml Sdv 2 Ml) 4 mg IVP Q6H PRN PRN Reason: vomiting, or N/V if npo Last Admin: 07/19/22 09:53 Dose: 4 mg Vitals/I&O/Wt Last Vital Signs Temp 98.1 F 07/19/22 15:37 Pulse 64 07/19/22 15:37 Resp 17 07/19/22 15:37 BP 144/74 07/19/22 15:37 Pulse Ox 95 07/19/22 15:37 O2 Del Method 07/19/22 15:37 O2 Flow Rate 3 07/19/22 12:50 07/19/22 07/19/22 07/19/22 06:59 14:59 22:59 Intake Total 50 / 1700 50 / 50 Output Total 400 / 400 Balance 50 / 1600 -350 / -350 Weight last 48 hrs Weight 290 lb 2 oz Weight 270 lb Physical Exam Narrative: GENERAL: The patient is alert and oriented times three. Not in any acute distress. Obese HEENT: No significant pallor, icterus or lymphadenopathy.Oral cavity: There are no mucous membrane lesions. NECK: Trachea appears to be central. No masses noted. No JVD or thyromegaly appreciated. RESPIRATORY: Chest is symmetrical. No intercostals muscle retraction or any accessory muscle activation. There is no chest wall tenderness. Breath sounds are heard bilaterally. No rales or rhonchi heard. No evidence of any consolidation. BREASTS: Deferred. HEART: The heart sounds are normal. No S3 or S4. No significant murmurs. No pericardial rub ABDOMEN: Has a draining catheter in the right upper quadrant. Mild diffuse tenderness in this region. Bowel sounds are normally heard. : Deferred. RECTAL: Deferred. LYMPHATIC: No lymphadenopathy noted in the neck. EXTREMITIES: No edema or cyanosis. No clubbing. MUSCULOSKELETAL: No acute joint deformities or swelling SKIN: There are no significant rashes or ecchymosis NEUROPSYCHIATRIC: The patient is alert and oriented x3. Appears to be in a good mood. No tremors or rigidity noted. Data : 07/19/22 02:37 07/19/22 02:37 Other Labs: Laboratory Last Values WBC 14.5 10^3/uL (4.0-10.0) H 07/19/22 02:37 RBC 4.10 10^6/uL (4.1-5.3) 07/19/22 02:37 Hgb 12.1 g/dL (11.5-15.3) 07/19/22 02:37 Hct 39.3 % (37.0-47.0) 07/19/22 02:37 MCV 95.9 fl (81-99) 07/19/22 02:37 MCH 29.5 pg (28.0-34.0) 07/19/22 02:37 MCHC 30.8 g/dL (30.0-36.0) 07/19/22 02:37 RDW 13.5 % (12.1-15.1) 07/19/22 02:37 Plt Count 185 10^3/cmm (130-400) 07/19/22 02:37 MPV 11.7 fL (7.4-10.4) H 07/19/22 02:37 Neut % (Auto) 93.0 % 07/19/22 02:37 Lymph % (Auto) 2.2 % 07/19/22 02:37 [place] % (Auto) 3.6 % 07/19/22 02:37 Eos % (Auto) 0.6 % 07/19/22 02:37 Baso % (Auto) 0.3 % 07/19/22 02:37 Neut # (Auto) 13.44 10^3/uL (1.8-7.7) H 07/19/22 02:37 Lymph # (Auto) 0.3 10^3/uL (0.8-4.8) L 07/19/22 02:37 [place] # (Auto) 0.5 10^3/uL (0.2-0.9) 07/19/22 02:37 Eos # (Auto) 0.1 10^3/uL (0.0-0.8) 07/19/22 02:37 Baso # (Auto) 0.1 10^3/uL (0.0-0.1) 07/19/22 02:37 Nucleated RBC % (auto) 0 % 07/19/22 02:37 Nucleated RBCs # 0.0 /100WBC 07/19/22 02:37 Sodium 141 mmol/L (136-145) 07/19/22 02:37 Potassium 3.6 mmol/L (3.5-5.1) 07/19/22 02:37 Chloride 106 mmol/L (98-107) 07/19/22 02:37 Carbon Dioxide 23 mmol/L (22-29) 07/19/22 02:37 Anion Gap 15.6 (5-19) 07/19/22 02:37 BUN 16 mg/dL (8-23) 07/19/22 02:37 Creatinine 0.7 mg/dL (0.5-0.9) 07/19/22 02:37 GFR Calculation Not Reportable 07/19/22 02:37 Glucose 104 mg/dL (65-115) 07/19/22 02:37 Estimat Average Glucose 108 07/18/22 04:20 Hemoglobin A1c 5.4 % (4.0-6.0) 07/18/22 04:20 Calculated Osmolality 293 mOsm/kg (285-295) 07/19/22 02:37 Calcium 8.0 mg/dL (8.5-10.5) L 07/19/22 02:37 Total Bilirubin 5.4 mg/dL (0.15-1.2) H 07/19/22 02:37 AST 308 U/L (0-32) H 07/19/22 02:37 ALT 333 U/L (0-33) H 07/19/22 02:37 Alkaline Phosphatase 184 U/L (35-105) H 07/19/22 02:37 Troponin T Gen 5 ng/L 11 ng/L (0-10) H 07/18/22 04:20 Total Protein 5.9 g/dL (6.6-8.7) L D 07/19/22 02:37 Albumin 3.2 g/dL (3.5-5.2) L 07/19/22 02:37 Globulin 2.7 g/dL (1.3-4.6) 07/19/22 02:37 Lipase 14 U/L (13-60) 07/18/22 04:20 TSH 1.53 uIU/mL (0.27-4.20) 07/18/22 04:20 Urine Color Yellow (Yellow) 07/18/22 06:01 Urine Appearance Clear (CLEAR) 07/18/22 06:01 Urine pH 5 (5-7) 07/18/22 06:01 Ur Specific [place] 1.020 (1.005-1.030) 07/18/22 06:01 Urine Protein 1+ (Negative) H 07/18/22 06:01 Urine Glucose (UA) Norm (Normal) 07/18/22 06:01 Urine Ketones 1+ (Negative) H 07/18/22 06:01 Urine Blood 2+ (Negative) H 07/18/22 06:01 Urine Nitrate Negative (Negative) 07/18/22 06:01 Urine Bilirubin Neg (Negative) 07/18/22 06:01 Urine Urobilinogen 1 mg/dL (Negative) H 07/18/22 06:01 Ur Leukocyte Esterase Negative (Negative) 07/18/22 06:01 Urine RBC 5-10 /hpf (0-2) H 07/18/22 06:01 Urine WBC 0-4 /hpf (0-5) H 07/18/22 06:01 Ur Squamous Epith Cells 0-4 /hpf (0-5) H 07/18/22 06:01 Amorphous Sediment Not Reportable 07/18/22 06:01 Urine Bacteria Trace /hpf (NONE) 07/18/22 06:01 Urine Mucus 2+ /hpf 07/18/22 06:01 Micro: Microbiology 07/18/22 15:10 Gram Stain - Final Gallbladder Fluid Body Fluid Culture - Preliminary Gram Negative Rods A&P Assessment and plan (1) Abnormal stress test: Patient is remaining stable and asymptomatic from a cardiac standpoint. Stable rhythm on the telemetry. May continue on the current measures. (2) Acute cholecystitis: Status post laparoscopic cholecystectomy. Developing features of obstructive jaundice. In the process of being transferred to [facility]. (3) Dyslipidemia: (4) Benign essential hypertension with target blood pressure below 140/90: The blood pressure is currently of stage II. The pain could be partly causing the blood pressure elevation. This needs to be closely monitored. Plan Patient's overall cardiovascular status seems to be stable. May continue on the current treatment measures. Attestations Medical Necessity Statement*: Disposition as per the primary/surgery team Coding Level of Care Code Acute [employer] for [employer] Fwd History Expanded Problem Focused Exam Expanded Problem Focused Medical Decision Making Low Complexity Diagnoses Abnormal stress test R94.39 Acute cholecystitis K81.0 Dyslipidemia E78.5 Benign essential hypertension with target blood pressure below 140/90 I10
--- NOTE | 2022-07-19 18:37 | P.TS_ITS ---
Transfer Summary Providers Date of Admission: 07/18/22 05:36 Date of Discharge/Transfer: 07/19/22 Attending Provider at Admission: Penny Lawton MD Attending Provider at Transfer: Jonh Lee MD Primary Care Provider: GIFTY Davenport Transfer Plans: Anticipated date of transfer: 07/19/22 . Receiving Facility: [facility] . Receiving Provider: Dr. Mack . Diagnoses at Discharge Discharge Diagnosis (1) Abnormal stress test: Status: Acute (2) Acute cholecystitis: Status: Acute (3) Dyslipidemia: Status: Acute Permanent problem details: Diagnosed in her 60s and is on medication managed by her primary care provider (4) Benign essential hypertension with target blood pressure below 140/90: Status: Acute Reason for Visit Reason for Visit abd pain Hospital Course Hospital Course Lainey is a 72 year old female with history of HTN, hyperlipiidemia, gout, right ovarian cyst, and probable CAD who presented to the ED with complaints of RUQ pain. GBUS demonstrated dilated gallbladder with stones and thickened wall. WB?C count was elevated LFT's were normal. She was diagnosed with acute cholecystitis, surgery was consulted, and she was placed on Zosyn. Surgery performed a laparoscopic cholecystectomy on 07/18 but secondary to small cystic duct was not able to perform intraoperative cholangiogram. The following day the patient was clinically stable without bilious drainage from drain and pain was better. Bilirubin, AST, ALT were all significantly elevated however. MRCP was performed demonstrating slight dilation of CBD, no obvious filling defects but could not exclude small stones. Surgery believed patient likely has some retained stones in CBD and requires ERCP. Discussed with patient and she elevated transfer to [facility]. I discussed the case with hospitalist and GI services and they gracially excepted care of patient. Risks/benefits of transfer discussed with patient who was in stable condition. Physical Exam Narrative: See exam done earlier in day, no changes. TS Data Studies Completed and Pending Pending at discharge Category Date Time Status Body Fluid Culture & GS Routine Lab 07/18/22 15:10 Results CBC Auto Diff [Complete Blood Count w/Auto] AM LABS Lab 07/20/22 04:00 Ordered CMP [Comprehensive Metabolic Panel] AM LABS Lab 07/20/22 04:00 Ordered NM hepatobiliary wo phar [id number] Stat Nuc Med 07/20/22 09:51 Ordered Pathology: Surgical [PTH] Routine Pth 07/18/22 16:18 Received Labs from last 24 hours 07/19/22 07/19/22 02:37 02:37 WBC 14.5 H RBC 4.10 Hgb 12.1 Hct 39.3 MCV 95.9 MCH 29.5 MCHC 30.8 RDW 13.5 Plt Count 185 MPV 11.7 H Neut % (Auto) 93.0 Lymph % (Auto) 2.2 Cross % (Auto) 3.6 Eos % (Auto) 0.6 Baso % (Auto) 0.3 Neut # (Auto) 13.44 H Lymph # (Auto) 0.3 L Cross # (Auto) 0.5 Eos # (Auto) 0.1 Baso # (Auto) 0.1 Nucleated RBC % (auto) 0 Nucleated RBCs # 0.0 Sodium 141 Potassium 3.6 Chloride 106 Carbon Dioxide 23 Anion Gap 15.6 BUN 16 Creatinine 0.7 GFR Calculation Not Reportable Glucose 104 Calculated Osmolality 293 Calcium 8.0 L Total Bilirubin 5.4 H AST 308 H ALT 333 H Alkaline Phosphatase 184 H Total Protein 5.9 L D Albumin 3.2 L Globulin 2.7 Completed Studies During Hospitalization Category Date Time Status MR MRCP [id number] Stat MRI 07/19/22 06:27 Completed US gall bladder 88696 Stat Ultrasound 07/18/22 04:09 Completed Laboratory Last Values WBC 14.5 10^3/uL (4.0-10.0) H 07/19/22 02:37 RBC 4.10 10^6/uL (4.1-5.3) 07/19/22 02:37 Hgb 12.1 g/dL (11.5-15.3) 07/19/22 02:37 Hct 39.3 % (37.0-47.0) 07/19/22 02:37 MCV 95.9 fl (81-99) 07/19/22 02:37 MCH 29.5 pg (28.0-34.0) 07/19/22 02:37 MCHC 30.8 g/dL (30.0-36.0) 07/19/22 02:37 RDW 13.5 % (12.1-15.1) 07/19/22 02:37 Plt Count 185 10^3/cmm (130-400) 07/19/22 02:37 MPV 11.7 fL (7.4-10.4) H 07/19/22 02:37 Neut % (Auto) 93.0 % 07/19/22 02:37 Lymph % (Auto) 2.2 % 07/19/22 02:37 Cross % (Auto) 3.6 % 07/19/22 02:37 Eos % (Auto) 0.6 % 07/19/22 02:37 Baso % (Auto) 0.3 % 07/19/22 02:37 Neut # (Auto) 13.44 10^3/uL (1.8-7.7) H 07/19/22 02:37 Lymph # (Auto) 0.3 10^3/uL (0.8-4.8) L 07/19/22 02:37 Cross # (Auto) 0.5 10^3/uL (0.2-0.9) 07/19/22 02:37 Eos # (Auto) 0.1 10^3/uL (0.0-0.8) 07/19/22 02:37 Baso # (Auto) 0.1 10^3/uL (0.0-0.1) 07/19/22 02:37 Nucleated RBC % (auto) 0 % 07/19/22 02:37 Nucleated RBCs # 0.0 /100WBC 07/19/22 02:37 Sodium 141 mmol/L (136-145) 07/19/22 02:37 Potassium 3.6 mmol/L (3.5-5.1) 07/19/22 02:37 Chloride 106 mmol/L (98-107) 07/19/22 02:37 Carbon Dioxide 23 mmol/L (22-29) 07/19/22 02:37 Anion Gap 15.6 (5-19) 07/19/22 02:37 BUN 16 mg/dL (8-23) 07/19/22 02:37 Creatinine 0.7 mg/dL (0.5-0.9) 07/19/22 02:37 GFR Calculation Not Reportable 07/19/22 02:37 Glucose 104 mg/dL (65-115) 07/19/22 02:37 Estimat Average Glucose 108 07/18/22 04:20 Hemoglobin A1c 5.4 % (4.0-6.0) 07/18/22 04:20 Calculated Osmolality 293 mOsm/kg (285-295) 07/19/22 02:37 Calcium 8.0 mg/dL (8.5-10.5) L 07/19/22 02:37 Total Bilirubin 5.4 mg/dL (0.15-1.2) H 07/19/22 02:37 AST 308 U/L (0-32) H 07/19/22 02:37 ALT 333 U/L (0-33) H 07/19/22 02:37 Alkaline Phosphatase 184 U/L (35-105) H 07/19/22 02:37 Troponin T Gen 5 ng/L 11 ng/L (0-10) H 07/18/22 04:20 Total Protein 5.9 g/dL (6.6-8.7) L D 07/19/22 02:37 Albumin 3.2 g/dL (3.5-5.2) L 07/19/22 02:37 Globulin 2.7 g/dL (1.3-4.6) 07/19/22 02:37 Lipase 14 U/L (13-60) 07/18/22 04:20 TSH 1.53 uIU/mL (0.27-4.20) 07/18/22 04:20 Urine Color Yellow (Yellow) 07/18/22 06:01 Urine Appearance Clear (CLEAR) 07/18/22 06:01 Urine pH 5 (5-7) 07/18/22 06:01 Ur Specific [place] 1.020 (1.005-1.030) 07/18/22 06:01 Urine Protein 1+ (Negative) H 07/18/22 06:01 Urine Glucose (UA) Norm (Normal) 07/18/22 06:01 Urine Ketones 1+ (Negative) H 07/18/22 06:01 Urine Blood 2+ (Negative) H 07/18/22 06:01 Urine Nitrate Negative (Negative) 07/18/22 06:01 Urine Bilirubin Neg (Negative) 07/18/22 06:01 Urine Urobilinogen 1 mg/dL (Negative) H 07/18/22 06:01 Ur Leukocyte Esterase Negative (Negative) 07/18/22 06:01 Urine RBC 5-10 /hpf (0-2) H 07/18/22 06:01 Urine WBC 0-4 /hpf (0-5) H 07/18/22 06:01 Ur Squamous Epith Cells 0-4 /hpf (0-5) H 07/18/22 06:01 Amorphous Sediment Not Reportable 07/18/22 06:01 Urine Bacteria Trace /hpf (NONE) 07/18/22 06:01 Urine Mucus 2+ /hpf 07/18/22 06:01 Radiology Impressions Gallbladder Ultrasound 07/18/22 04:09 IMPRESSION: 1. Cholelithiasis, with prominent gallbladder distention, see additional details above. 2. Borderline/mild biliary tree dilation for age, see above discussion. 3. Other findings discussed above. Cholangiopancreatography MRI 07/19/22 06:27 IMPRESSION: 1. Quality of examination is limited by patient's inability to hold her breath and motion artifact. 2. The common bile duct is measuring top normal to minimally enlarged. Measures 6 to 7 mm throughout its course to the pancreatic head. No intraluminal filling defect is identified. Small common bile duct stones would be difficult to exclude with this amount of motion. 3. Small fluid collection in the gallbladder bed measures 2.5 x 1.6 cm. Probably postop seroma. If pain continues and there is any concern for bile leak HIDA scan may be of value. 4. Very small bilateral pleural effusions. Recent Clincial Data Last Vital Signs Temp 98.1 F 07/19/22 15:37 Pulse 75 07/19/22 17:57 Resp 17 07/19/22 15:37 BP 120/66 07/19/22 17:57 Pulse Ox 95 07/19/22 15:37 O2 Del Method 07/19/22 15:37 O2 Flow Rate 3 07/19/22 12:50 Vital Signs Temp Pulse Resp BP Pulse Ox O2 Del Method O2 Del Method 07/19/22 17:57 75 120/66 07/19/22 08:00 07/19/22 15:37 98.1 F 64 17 144/74 95 Nasal Cannula 07/19/22 12:50 84 80 L Room Air 07/19/22 11:59 98.0 F 75 17 136/67 91 Room Air 07/19/22 08:00 98.0 F 67 17 116/75 91 Nasal Cannula O2 Del Method O2 Flow Rate O2 Flow Rate 07/19/22 17:57 07/19/22 08:00 6 07/19/22 15:37 07/19/22 12:50 Nasal Cannula 3 07/19/22 11:59 07/19/22 08:00 Intake & Output/Weight 07/17/22 07/18/22 07/19/22 07/20/22 06:59 06:59 06:59 06:59 Intake Total 50 / 50 1700 / 1700 220 / 220 Output Total 100 / 100 400 / 400 Balance 50 / 50 1600 / 1600 -180 / -180 Weight 122.47 kg 131.598 kg Vitals Last Vital Signs Temp 98.1 F 07/19/22 15:37 Pulse 75 07/19/22 17:57 Resp 17 07/19/22 15:37 BP 120/66 07/19/22 17:57 Pulse Ox 95 07/19/22 15:37 O2 Del Method 07/19/22 15:37 O2 Flow Rate 3 07/19/22 12:50 TS Medications Medications Acetaminophen (Acetaminophen 325 Mg Tablet) 650 mg PO Q6H PRN PRN Reason: Mild/Mod Pain Or Temp >/= 101 Last Admin: 07/19/22 10:37 Dose: 650 mg Allopurinol (Allopurinol 100 Mg Tablet) 100 mg PO QAM [facility] Last Admin: 07/19/22 06:45 Dose: Not Given Amlodipine Besylate (Amlodipine 10 Mg Tablet) [facility] [place] Last Admin: 07/19/22 06:45 Dose: Not Given Carvedilol (Carvedilol 3.125 Mg Tablet) 3.125 mg PO BID [facility] Last Admin: 07/19/22 09:42 Dose: Not Given Enoxaparin Sodium (Enoxaparin 40 Mg/0.4 Ml Syringe) 40 mg SUBCUT Q24H [facility] Last Admin: 07/19/22 14:07 Dose: 40 mg Famotidine (Famotidine 20 Mg/2 Ml Inj) 20 mg IVP Q12H [facility] Last Admin: 07/19/22 10:37 Dose: 20 mg Sodium Chloride (Sodium Chloride 0.9%) 1,000 mls @ 50 mls/hr IV .Q20H [facility] Last Admin: 07/19/22 16:43 Dose: Not Given Piperacillin Sod/Tazobactam (Sod 3.375 gm/ Sodium Chloride) 50 mls @ 12.5 mls/hr IV Q8H [facility]; Protocol Last Infusion: 07/19/22 16:12 Dose: Infused Lisinopril (Lisinopril 20 Mg Tablet) 40 mg PO QAM [facility] Last Admin: 07/19/22 06:45 Dose: Not Given Morphine Sulfate (Morphine 4 Mg/Ml Sdv 1 Ml) 2 mg IVP Q4H PRN PRN Reason: SEVERE PAIN Last Admin: 07/19/22 03:35 Dose: 2 mg Ondansetron HCl (Ondansetron 2 Mg/Ml Sdv 2 Ml) 4 mg IVP Q6H PRN PRN Reason: vomiting, or N/V if npo Last Admin: 07/19/22 09:53 Dose: 4 mg Discontinued Medications Albuterol Sulfate (Albuterol 2.5 Mg/0.5 Ml Neb) 2.5 mg INHALATION ONCE PRN PRN Reason: WHEEZING Atorvastatin Calcium (Atorvastatin 40 Mg Tablet) 10 mg PO QPM [facility] Last Admin: 07/18/22 17:38 Dose: 10 mg Benzocaine (Cetylpyridinium Lozenge) 1 each MUCOUS MEM ONCE ONE Stop: 07/18/22 15:58 Last Admin: 07/19/22 09:02 Dose: Not Given Bupivacaine HCl/Epinephrine Bitart (Bupivacaine-Epi 0.5% 10 Ml Inj) Confirm Administered Dose 10 ml .ROUTE .STK-MED ONE Stop: 07/18/22 13:04 Bupivacaine HCl/Epinephrine Bitart (Bupivacaine-Epi 0.5% 10 Ml Inj) Confirm Administered Dose 50 ml .ROUTE .STK-MED ONE Stop: 07/18/22 13:09 Bupivacaine HCl/Epinephrine Bitart (Bupivacaine-Epi 0.5% 10 Ml Inj) 60 ml INJECTION ONCE ONE Stop: 07/18/22 14:17 Last Admin: 07/18/22 14:18 Dose: 60 ml Dexamethasone (Dexamethasone 4 Mg/Ml Inj) 4 mg IVP Q5M PRN PRN Reason: Nausea unrelieved by Reglan Stop: 07/19/22 15:57 Esmolol HCl (Esmolol 100 Mg/10 Ml Sdv) Confirm Administered Dose 100 mg .ROUTE .STK-MED ONE Stop: 07/18/22 14:01 Famotidine (Famotidine 20 Mg/2 Ml Inj) 20 mg IVP ONCE PRN PRN Reason: HEARTBURN Fentanyl (Fentanyl 50 Mcg/Ml Inj 2ml) 50 mcg IVP Q10M PRN PRN Reason: Preop Pain Fentanyl (Fentanyl 50 Mcg/Ml Inj 2ml) 100 mcg IVP ONCE PRN PRN Reason: Per anesthesia for block Fentanyl (Fentanyl 50 Mcg/Ml Inj 5ml) Confirm Administered Dose 250 mcg .ROUTE .STK-MED ONE Stop: 07/18/22 13:14 Fentanyl (Fentanyl 50 Mcg/Ml Inj 2ml) 50 mcg IVP Q5M PRN PRN Reason: Pain level 6-10 PACU Phase I Stop: 07/19/22 15:57 Furosemide (Furosemide 10 Mg/Ml Sdv 2ml) 20 mg IVP ONCE ONE Stop: 07/19/22 09:37 Last Admin: 07/19/22 11:44 Dose: Not Given Furosemide (Furosemide 10 Mg/Ml Sdv 2ml) 20 mg IVP ONCE ONE Stop: 07/19/22 11:46 Last Admin: 07/19/22 12:13 Dose: 20 mg Glycopyrrolate (Glycopyrrolate 0.2 Mg/Ml Sdv 2 Ml) Confirm Administered Dose 0.4 mg .[facility]OUTE [facility] Stop: 07/18/22 15:34 Hydromorphone HCl (Hydromorphone 1 Mg/Ml Inj 1 Ml) 0.5 mg IVP ONCE ONE Stop: 07/18/22 04:10 Last Admin: 07/18/22 04:26 Dose: 0.5 mg Hydromorphone HCl (Hydromorphone 1 Mg/Ml Inj 1 Ml) 0.25 mg IVP Q10M PRN PRN Reason: Pain level 4-6 PACU Phase I Stop: 07/19/22 15:57 Hydromorphone HCl (Hydromorphone 1 Mg/Ml Inj 1 Ml) 0.5 mg IVP Q10M PRN PRN Reason: Pain level 7-10 PACU Phase I Stop: 07/19/22 15:57 Piperacillin Sod/Tazobactam (Sod 3.375 gm/ Sodium Chloride) 50 mls @ 100 mls/hr IV ONCE ONE; Protocol Stop: 07/18/22 05:44 Last Infusion: 07/18/22 05:55 Dose: Infused Sodium Chloride (Sodium Chloride 0.9%) 1,000 mls @ 30 mls/hr IV .Q24H [facility] Stop: 07/19/22 11:29 Last Admin: 07/19/22 09:02 Dose: Not Given Sodium Chloride (Sodium Chloride 0.9%) 500 mls @ 999 mls/hr IV .Q31M PRN PRN Reason: HYPOTENSION Iohexol (Iohexol 300 Mg/Ml 50 Ml Btl (Or Only)) 1 - 50 ml XX ONCE ONE Stop: 07/18/22 14:18 Last Admin: 07/18/22 14:18 Dose: 50 ml Ipratropium [place] (Ipratropium 0.5 Mg/2.5 Ml Neb) 0.5 mg INHALATION ONCE PRN PRN Reason: WHEEZING Ketorolac Tromethamine (Ketorolac 30 Mg/Ml Inj) 30 mg IVP ONCE ONE Stop: 07/19/22 09:48 Last Admin: 07/19/22 09:55 Dose: 30 mg Labetalol HCl (Labetalol 5 Mg/Ml Sdv 20ml) Confirm Administered Dose 100 mg .ROUTE .STK-MED ONE Stop: 07/18/22 16:39 Last Admin: 07/18/22 16:46 Dose: 100 mg Lidocaine HCl (Lidocaine 1% Inj 20 Ml) 0.1 ml INTRADERMA PRN PRN PRN Reason: anesthetic prior to IV start Stop: 07/19/22 11:17 Meperidine HCl (Meperidine 50 Mg/Ml Inj) 12.5 mg IVP Q5M PRN PRN Reason: Shivering PACU Phase I Stop: 07/19/22 15:57 Metoclopramide HCl (Metoclopramide 5 Mg/Ml Sdv 2 Ml) 10 mg IVP ONCE PRN PRN Reason: N/V if zofran ineffective Metoclopramide HCl (Metoclopramide 5 Mg/Ml Sdv 2 Ml) 10 mg IVP Q5M PRN PRN Reason: Nausea unrelieved by Zofran Stop: 07/19/22 15:57 Midazolam HCl (Midazolam 1 Mg/Ml Inj 2 Ml) 2 mg IVP Q5M PRN PRN Reason: Preop Anxiety Midazolam HCl (Midazolam 1 Mg/Ml Inj 5 Ml) 5 mg IVP ONCE PRN PRN Reason: Per anesthesia for block Morphine Sulfate (Morphine 4 Mg/Ml Sdv 1 Ml) 2 mg IVP Q5M PRN PRN Reason: Pain level 2-5 PACU Phase I Stop: 07/19/22 15:57 Morphine Sulfate (Morphine 4 Mg/Ml Sdv 1 Ml) 2 mg IVP Q2M PRN PRN Reason: Pain level 6-10 PACU Phase I Stop: 07/19/22 15:57 Morphine Sulfate (Morphine 4 Mg/Ml Sdv 1 Ml) 0 mg IVP Q5M PRN PRN Reason: Breakthrough Pain PACU PhaseII Neostigmine Methylsulfate (Neostigmine 1 Mg/Ml Sdv 10 Ml) Confirm Administered Dose 10 mg .ROUTE .STK-MED ONE Stop: 07/18/22 15:35 Ondansetron HCl (Ondansetron 2 Mg/Ml Sdv 2 Ml) 4 mg IVP ONCE ONE Stop: 07/18/22 04:10 Last Admin: 07/18/22 04:26 Dose: 4 mg Ondansetron HCl (Ondansetron 2 Mg/Ml Sdv 2 Ml) 4 mg IVP Q5M PRN PRN Reason: NAUSEA AND VOMITING Ondansetron HCl (Ondansetron 2 Mg/Ml Sdv 2 Ml) Confirm Administered Dose 4 mg .ROUTE .STK-MED ONE Stop: 07/18/22 14:00 Ondansetron HCl (Ondansetron 2 Mg/Ml Sdv 2 Ml) 4 mg IVP Q15M PRN PRN Reason: Nausea/Vomiting PACU PHASE II Ondansetron HCl (Ondansetron 2 Mg/Ml Sdv 2 Ml) 4 mg IVP Q5M PRN PRN Reason: Nausea PACU Phase I Stop: 07/19/22 15:57 Propofol (Propofol 10 Mg/Ml Sdv 20 Ml) Confirm Administered Dose 200 mg .ROUTE .STK-MED ONE Stop: 07/18/22 14:01 Rocuronium [place] (Rocuronium 10 Mg/Ml Inj 5ml) Confirm Administered Dose 50 mg .ROUTE .STK-MED ONE Stop: 07/18/22 14:02 Rocuronium [place] (Rocuronium 10 Mg/Ml Inj 5ml) Confirm Administered Dose 50 mg .ROUTE .STK-MED ONE Stop: 07/18/22 15:34 Scopolamine (Scopolamine 1.5 Patch) 1 patch TRANSDERMA ONCE PRN PRN Reason: Nausea/ Vomiting Prophylaxis Allergies codeine Adverse Reaction (Verified 07/18/22 07:43) nausea--can take hydrocodone tramadol Adverse Reaction (Verified 07/18/22 07:43) N/V Home Medications furosemide 40 mg tablet 40 - 80 mg PO DAILY PRN edema 03/28/21 [History Confirmed 07/18/22] nitroglycerin 0.4 mg sublingual tablet 0.4 mg sublingual Q5M PRN chest pain 30 days #30 tabs 03/28/21 [Rx Confirmed 07/18/22] allopurinol 100 mg tablet 100 mg PO QAM 12/15/21 [History Confirmed 07/18/22] carvedilol 3.125 mg tablet 3.125 mg PO BID #60 tabs 12/15/21 [Rx Confirmed 07/18/22] amlodipine 10 mg tablet 10 mg PO QAM 07/18/22 [History Confirmed 07/18/22] fluticasone propionate 50 mcg/actuation nasal spray,suspension 1 - 2 spray intranasal DAILY PRN Allergy Symptoms 07/18/22 [History Confirmed 07/18/22] ibuprofen 200 mg tablet 800 mg PO Q8H PRN Pain 07/18/22 [History Confirmed 07/18/22] lisinopril 40 mg tablet 40 mg PO QAM 07/18/22 [History Confirmed 07/18/22] lovastatin 10 mg tablet 10 mg PO QPM 07/18/22 [History Confirmed 07/18/22] meloxicam 15 mg tablet 15 mg PO QAM 07/18/22 [History Confirmed 07/18/22] Discharge Plan Discharge Patient Disposition: Xfer Short-Term Hosp Condition: Stable Prescriptions: No Action allopurinol 100 mg tablet 100 mg PO QAM carvedilol 3.125 mg tablet 3.125 mg PO BID Qty: 60 5RF Rx Instructions: must administer with a meal/food furosemide 40 mg tablet 40 - 80 mg PO DAILY PRN (Reason: edema) nitroglycerin 0.4 mg tablet, sublingual 0.4 mg sublingual Q5M PRN (Reason: chest pain) 30 Days Qty: 30 3RF Rx Instructions: until response; do not exceed 3 doses per episode meloxicam 15 mg tablet 15 mg PO QAM ibuprofen 200 mg Tablet 800 mg PO Q8H PRN (Reason: Pain) fluticasone propionate 50 mcg/actuation spray,suspension 1 - 2 spray INTRANASAL DAILY PRN (Reason: Allergy Symptoms) lovastatin 10 mg tablet 10 mg PO QPM amlodipine 10 mg tablet 10 mg PO QAM lisinopril 40 mg tablet 40 mg PO QAM Discharge Orders: Transfer Out of Facility (Order); Ordered 07/19/22 Ordered By: Jonh Lee Referrals: Jane Hilton FNP [Primary Care Provider] - Patient Instructions: Post Anesthesia Care Transfer Attestations Time Spent in Transfer Care: greater than 30 min Quality Metrics Clinical Quality Measures [ No reported AMI, CVA or VTE this stay] Coding Level of Care Code Acute Nut Steamer for Chg Fwd Diagnoses Abnormal stress test R94.39 Acute cholecystitis K81.0 Dyslipidemia E78.5 Benign essential hypertension with target blood pressure below 140/90 I10
--- NOTE | 2022-07-19 18:40 | PC.NURSE ---
patient being transferred to [facility] report called to alexander loo
--- NOTE | 2022-07-19 19:00 | PC.NURSE ---
Transfer Note Patient transferred to [facility] from [facility] [id number] via ambulance. Handoff given to alexander SAMSON. Patient oriented to environment and equipment. Covering service notified. Orders reviewed and will continue to monitor. Family and/or customer loyalty representative notified.
== END 2022-07-19 19:00 | disposition short-term general hospital (02) | DRG 412 ==
LOC: ER 04:12 → ER IP 07:05 → MEDSURG 18:00 → ER IP 19:00
PROVIDERS: Internal Medicine Cardiovascular Disease; Surgery; Admitting Provider Student in an Organized Health Care Education/Training Program; Emergency Provider Emergency Medicine; PCP Nurse Practitioner Family; Visit Provider Internal Medicine
PROC: 0FT44ZZ Resection of Gallbladder, Percutaneous Endoscopic Approach (ICD-10-PCS; CPT 47562; principal; 2022-07-18 12:30)
DX: K80.42 Calculus of bile duct with acute cholecystitis without obstruction (principal); Z68.43 Body mass index [BMI] 50.0-59.9, adult; K42.9 Umbilical hernia without obstruction or gangrene; I25.10 Atherosclerotic heart disease of native coronary artery without angina pectoris; I73.9 Peripheral vascular disease, unspecified; I10 Essential (primary) hypertension; E78.5 Hyperlipidemia, unspecified; E66.9 Obesity, unspecified; N83.201 Unspecified ovarian cyst, right side; M10.9 Gout, unspecified; R73.9 Hyperglycemia, unspecified
CPT/HCPCS: 12345; 36415; 74181; 76705; 80053; 81001; 83036; 83690; 84443; 84484; 85025; 87070; 87075; 87077; 87186; 87205; 88304; 93005; 96365; 96372; 96375; 96376; 99285; J1170; J1650; J1885; J1940; J2270; J2405; J2543; J2704; J2710; J3010; J3490; J7030

== ENCOUNTER → 2022-07-28 08:10 | Outpatient (BNVA) | payer MEDICARE, SELFPAY | PROVIDERS: PCP Nurse Practitioner Family; Visit Provider Surgery | DX: Z90.49 Acquired absence of other specified parts of digestive tract (principal); Z98.890 Other specified postprocedural states | CPT/HCPCS: 99024 ==

== ENCOUNTER 2022-08-29 08:19 | Day surgery (SDC) | payer MEDICARE, SELFPAY ==
[2022-08-28 10:34] VITALS: BMI 47.8
--- NOTE | 2022-08-28 10:45 | ANES.PREANE2 ---
Pre-Anesthetic Assessment Height/Weight: Height 1.6 m Weight 122.47 kg Operation Date: 08/29/22 12:55 Proposed Procedures p Laparoscopic cystectomy 34884 N83.209(Not Applicable) - Lala Silver MD Familial anesthetic complications: None Social No alcohol and No tobacco Exam alert, oriented x 3, clear to auscultation bilaterally and regular rate & rhythm Airway Mallampati: Class III Dentition: other (missing) Pulmonary None reported CV/HEM Coronary Artery Disease, Hypertension and Peripheral Vascular Disease 2020 IMPRESSIONS ?1. Small sized perfusion abnormality of mild severity of basal to mid ?inferolateral, apical lateral, apical inferior and apical ding? with subtle ?reversibility in the infero-lateral wall. ?2. This may represent attenuation artifact given improved tracer uptake on ?prone imaging.? However small area of ischemia in circumflex artery territory ?cannot be completely ruled out. ?3. Overall left ventricular systolic function is low normal without regional ?wall motion abnormalities, LVEF=53%. ?4. EKG portion of the study will be reported separately. ?5. No prior similar studies to compare. 04/20 sestamibi Conclusion: 1.? Normal EKG response to Lexiscan infusion 2.? No Lexiscan induced chest pain or cardiac arrhythmia. 3.? Normal blood pressure and heart rate response. 4.? Sestamibi/sestamibi perfusion scan pending; see separate report. echo 2020 CONCLUSIONS ?1. Normal left ventricular size, systolic function and wall ?thickness, with no regional wall motion abnormalities. Left ?ventricular ejection fraction is estimated at 60 %. Grade II ?diastolic dysfunction, moderately elevated filling pressures. ?2. Normal right ventricular size and systolic function. ?3. Mild tricuspid valve regurgitation. ?4. Pulmonary artery pressure estimated at 34 mm Hg. ?5. No prior similar studies to compare. None reported Hepatic None reported increased LFTS GI Gastroesophageal Reflux Disease Metabolic Morbid Obesity [facility] [place]/skel None reported Neuropsych None reported Anesthetic Plan ASA status: 3 Anesthesia: General Risk of > 500 ml blood loss (7ml/kg in children): No Medications/Allergies Home Medications Medication Instructions Recorded Confirmed Last Taken Type furosemide 40 mg tablet 40 - 80 mg PO DAILY PRN edema 03/28/21 08/28/22 08/23/22 History nitroglycerin 0.4 mg sublingual 0.4 mg sublingual Q5M PRN chest 03/28/21 08/28/22 Unknown Rx tablet pain 30 days #30 tabs allopurinol 100 mg tablet 100 mg PO QAM 12/15/21 08/28/22 08/28/22 History carvedilol 3.125 mg tablet 3.125 mg PO BID #60 tabs 12/15/21 08/28/22 08/28/22 Rx amlodipine 10 mg tablet 10 mg PO QAM 07/18/22 08/28/22 08/28/22 History fluticasone propionate 50 1 - 2 spray intranasal DAILY PRN 07/18/22 08/28/22 07/29/22 History mcg/actuation nasal Allergy Symptoms spray,suspension ibuprofen 200 mg tablet 800 mg PO Q8H PRN Pain 07/18/22 08/28/22 08/21/22 History lisinopril 40 mg tablet 40 mg PO QAM 07/18/22 08/28/22 08/28/22 History lovastatin 10 mg tablet 10 mg PO QPM 07/18/22 08/28/22 08/27/22 History meloxicam 15 mg tablet 15 mg PO QAM 07/18/22 08/28/22 08/28/22 History Allergies Allergy/AdvReac Type Severity Reaction Status Date / Time codeine AdvReac nausea--can Verified 08/28/22 07:57 take hydrocodone tramadol AdvReac N/V Verified 08/28/22 07:57 [facility] Anesthesia Medical History Dyslipidemia Diagnosed in her 60s and is on medication managed by her primary care provider Gout Hypertension Diagnosed in her 60s and is controlled on medication managed by her primary care provider. She also sees Dr. Cole No pertinent past medical history Denies diabetes, asthma, seizures, DVT/PE PCP: Dr. Worley Obesity Ovarian cyst Peripheral arterial disease Surgical History History of laparoscopic cholecystectomy Hx of esophagogastroduodenoscopy S/P bilateral cataract extraction S/P right knee surgery Laser surgery for torn ligament, performed in approximately 2018 Family History Mother Heart disease Father Heart disease Brother Stroke Sister Hypertension x 2 Denies family history of Colon cancer Ovarian cancer Diabetes Breast cancer Uterine cancer Thyroid condition Social History Smoking and tobacco status: never smoked Data Anesthesia 08/28/22 10:30 Cardiac Studies: Echocardiogram 04/06/21 Sestamibi Stress Test (Cardiology) 04/18/21
[2022-08-28 10:56] LABS: Anion Gap 14.7 (5-19); Blood Urea Nitrogen 12 mg/dL (8-23); Calcium 9.3 mg/dL (8.5-10.5); Carbon Dioxide 25 mmol/L (22-29); Chloride 102 mmol/L (98-107); Glucose 96 mg/dL (65-115); Osmolality Calculated 286 mOsm/kg (285-295); Potassium 3.7 mmol/L (3.5-5.1); Sodium 138 mmol/L (136-145)
[2022-08-29] VITALS (11 sets, daily range): BP systolic 138–211; BP diastolic 65–105; PULSE 60–91; RESP 16–18; TEMP 36.1–36.3; O2SAT 92–100
[2022-08-29] MEDS: phenazopyridine 100 mg Tablet 200 MG PO (08:38)
[2022-08-29] MEDS: CELEcoxib 200 mg Capsule 400 MG PO (08:39)
[2022-08-29] MEDS: gabapentin 300 mg Capsule PO (08:39)
[2022-08-29] MEDS: sodium chloride 0.9% 1,000 ML 30 ML IV (08:46)
[2022-08-29] MEDS: acetaminophen 1,000 MG/100 ML PIGGYBACK 400 MG IV (08:47)
--- NOTE | 2022-08-29 09:00 | P.ANESUD_ITS ---
Pre-Anesthetic Update Pre-Anesthetic Assessment: Date of Surgery/Procedure: 08/29/22 Preop Katelynn gnosis: right adnexal mass Proposed Procedure: Operation Date: 08/29/22 09:55 Proposed Procedures p Laparoscopic Salpingo Oophorectomy 37089, N83.209(Bilateral) - Lala Silver MD Any changes to Pre-Anesthetic Assessment?: No Last Intake: Intake Last Liquid Date 08/28/22 Last Liquid Time 17:00 Last Solid Date 08/28/22 Last Solid Time 17:00 Labs Last 48hrs: BMP 08/28/22 10:30 Sodium 138 Potassium 3.7 Chloride 102 Carbon Dioxide 25 BUN 12 Creatinine 0.6 Glucose 96 Calcium 9.3 Vitals: Temperature 97.3 F L 08/29/22 08:32 Temperature Source Temporal Artery S can 08/29/22 08:32 Pulse Rate 72 08/29/22 08:32 Respiratory Rate 18 08/29/22 08:32 Blood Pressure 211/86 08/29/22 08:32 Blood Pressure Shanelle n 127 08/29/22 08:32 Pulse Oximetry 97 08/29/22 08:32 Oxygen Delivery Me thod 08/29/22 08:32 Exam: Pre-Anes Outpt Exam: alert, oriented x 3, clear to auscultation bilaterally and regular rate & rhythm Cardiac Studies: Echocardiogram 04/06/21 [place] Stress Test (Cardiology) 04/18
--- NOTE | 2022-08-29 09:29 | ECG_ITS ---
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 Measurements Intervals [place] Rate: 60 P: 83 NE: 155 QRS: -34 QRSD: 118 T: 41 QT: 435 QTc: 437 Interpretive Statements SINUS RHYTHM WITH SINUS ARRHYTHMIA LEFT AXIS DEVIATION [QRS AXIS < -30] MODERATE VOLTAGE CRITERIA FOR LVH, CONSIDER NORMAL VARIANT [MEETS CRITERIA IN ONE OF: R(aVL), S(V1), R(V5), R(V5/V6)+S(V1)] POSSIBLE ANTERIOR MYOCARDIAL INFARCTION , OF INDETERMINATE AGE [30 ms Q WAVE IN V3/V4, OR R < 0.2 mV IN V4] Compared to ECG 07/18/2022 04:31:21 No significant changes Electronically Signed On 08-29-2022 18:11:27 [employer] by Crystal García M.D. [id number]
--- NOTE | 2022-08-29 10:28 | W.PM.OPSUD ---
Surgery/Procedure H&P Update DATE OF PROCEDURE: August 29, 2022 DATE H&P PERFORMED: 08/28/22 H&P UPDATE INFORMATION: I have reviewed H&P completed within last 30 days, I have examined patient prior to procedure and No changes to prior documentation PREOP DIAGNOSIS: right adnexal mass PLANNED PROCEDURE: Operation Date: 08/29/22 09:55 Proposed Procedures p Laparoscopic Salpingo Oophorectomy 86091, N83.209(Bilateral) - Lala Silver MD Related Problem List Diagnoses (1) Ovarian cyst:
[2022-08-29] MEDS: ceFAZolin 2,000 MG in sodium chloride 0.9% (plus) 50 ML 100 MG IV (10:45)
--- NOTE | 2022-08-29 12:25 | P.OP_ITS ---
Operative Report Date of procedure: August 29, 2022 Pre-op diagnosis: Preop Diagnosis right adnexal mass Post-op diagnosis: same Post-op findings: large right paratubal cyst Procedure done: BSO Specimens removed/disposition: bilateral fallopian tubes and ovaries to pathology Surgeon: Lala Silver Anesthesia: General Estimated blood loss (mL): 0 IV fluids (mL): 600 Urine output (mL): 100 Complications: none Findings: normal appearing uterus tubes and ovaries with a large paraovarian cyst. Condition: stable Disposition: PACU Procedure: The patient was taken to the operating room where general anesthesia was administered and found to be adequate. She was prepped and draped in the normal sterile fashion in the dorsal lithotomy position in [facility]. A Benavidez catheter was placed. A weighted speculum was placed into the vagina and the anterior lip of the cervix grasped with a single-tooth tenaculum. A ZYagantec uterine manipulator was placed. The gloves were changed and attention was turned to the laparoscopic portion of the case. A 5 mm infraumbilical incision was made. The 5 mm trocar was placed using the easy view trocar. Intra-abdominal placement was confirmed and CO2 gas was used to insufflate the abdomen. Using direct visualization and illumination of the abdominal wall, a 5 mm incisions was made low and lateral on the left and a 12 mm incision placed on the right. The appropriate trochars were then placed under direct visualization. Using the uterine manipulator and the grasper, the fallopian tubes and ovaries were identified. There was a large paratubal cyst on the right tube. A needle and syringe was used to drain the cyst. Using the laparoscopic cautery, the infundibulopelvic ligament was clamped cauterized and cut. Then, following the tube, the uteroovarian ligament as well as the fallopian tube at the cornua was cauterized and cut. First on the left, then on the right.. There was excellent hemostasis post removal of the bilateral tubes and ovaries.. Pictures were taken. Using the 12mm trocar, a laparo scopic bag was placed and both tubes and ovaries were placed into it. The bag was then pulled through the 12 mm incision. The specimens will be sent to pathology. All instruments were removed. The abdomen was desufflated. The fascia incision on the right was closed with O-vicryl. The incisions were closed with 4-0 Vicryl. 10 ml of 1/2% bupivicaine was used around the incisions. The patient tolerated the procedure well. Sponge lap and needle counts were correct x3. She was taken to the recovery room in stable condition.
--- NOTE | 2022-08-29 12:43 | PM.DCS ---
Discharge Providers Date of Admission: 08/29/22 Date of Discharge: August 29, 2022 Attending Provider at Admission: Dr. Silver Attending Provider at Discharge: Lala Silver MD Primary Care Provider: GIFTY Davenport Diagnoses at Discharge Discharge Diagnosis (1) Ovarian cyst: Status: Acute Reason for Visit Reason for Visit: N83.209 Hospital Course Hospital Course The patient was admitted for surgery. She did well postoperatively and was readt for discharge. Physical Exam Urinary Catheter Management: Benavidez Latex: Cath Placed During This Visit: yes Urinary Catheter Date of Insertion: 08/29/22 Urinary Catheter Time of Insertion: 11:27 Discharge Data Studies Completed and Pending Pending at discharge Category Date Time Status Cyto Order Verification Routine Lab 08/29/22 12:19 Ordered Urine Culture Routine Lab 08/29/22 11:29 Received Cytology [PTH] Routine Pth 08/29/22 12:18 Ordered Pathology: Surgical [PTH] Routine Pth 08/29/22 12:21 Ordered Laboratory Results Sodium 138 mmol/L (136-145) 08/28/22 10:30 Potassium 3.7 mmol/L (3.5-5.1) 08/28/22 10:30 Chloride 102 mmol/L (98-107) 08/28/22 10:30 Carbon Dioxide 25 mmol/L (22-29) 08/28/22 10:30 Anion Gap 14.7 (5-19) 08/28/22 10:30 BUN 12 mg/dL (8-23) 08/28/22 10:30 Creatinine 0.6 mg/dL (0.5-0.9) 08/28/22 10:30 GFR Calculation Not Reportable 08/28/22 10:30 Glucose 96 mg/dL (65-115) 08/28/22 10:30 Calculated Osmolality 286 mOsm/kg (285-295) 08/28/22 10:30 Calcium 9.3 mg/dL (8.5-10.5) 08/28/22 10:30 Vitals Last Vital Signs Temp 97.3 F L 08/29/22 08:32 Pulse 72 08/29/22 08:32 Resp 18 08/29/22 08:32 BP 211/86 08/29/22 08:32 Pulse Ox 97 08/29/22 08:32 O2 Del Method 08/29/22 08:32 Discharge Plan Discharge Patient Disposition: Home Condition: Stable Prescriptions: New Endocet 5-325 mg tablet 1 tab PO Q4H Qty: 20 0RF Continued allopurinol 100 mg tablet 100 mg PO QAM carvedilol 3.125 mg tablet 3.125 mg PO BID Qty: 60 5RF Rx Instructions: must administer with a meal/food furosemide 40 mg tablet 40 - 80 mg PO DAILY PRN (Reason: edema) nitroglycerin 0.4 mg tablet, sublingual 0.4 mg sublingual Q5M PRN (Reason: chest pain) 30 Days Qty: 30 3RF Rx Instructions: until response; do not exceed 3 doses per episode meloxicam 15 mg tablet 15 mg PO QAM ibuprofen 200 mg Tablet 800 mg PO Q8H PRN (Reason: Pain) fluticasone propionate 50 mcg/actuation spray,suspension 1 - 2 spray INTRANASAL DAILY PRN (Reason: Allergy Symptoms) lovastatin 10 mg tablet 10 mg PO QPM amlodipine 10 mg tablet 10 mg PO QAM lisinopril 40 mg tablet 40 mg PO QAM Discharge Orders: Discharge Order (Routine); Ordered 08/29/22 Ordered By: Lala Silver Discharge Attestations Time Spent in Discharge Care*: less than 30 min Quality Metrics Clinical Quality Measures [ No reported AMI, CVA or VTE this stay] Coding Level of Care Code Acute Chg FW DC note Diagnoses Ovarian cyst N83.209
[2022-08-29] MEDS: labetalol 5 mg/mL SDV 20mL IVP (12:55)
[2022-08-29] MEDS: ipratropium-albuterol 3 mL Neb INHALATION (14:23)
[2022-08-29] MEDS: oxyCODONE-APAP 5-325 mg Tablet 1 TAB PO (14:39)
--- NOTE | 2022-08-29 16:21 | ANE.PACU2 ---
Inpatient post-anesthesia follow up: Airway intact: Yes Vital signs: Temperature 97.0 F Pulse Rate 64 Respiratory Rate 16 Blood Pressure 138/65 Pulse Oximetry 92 Oxygen Delivery Me thod Room Air Oxygen Flow Rate 3 Fraction of Inspir ed Oxygen Hydration adequate: Yes Nausea and vomiting: No Pain level: 1 Mental status: Baseline
[2022-08-30 07:05] LABS: Cyto Order Verification Order Verified
== END 2022-08-29 14:45 | disposition home or self-care (01) ==
PROVIDERS: Anesthesiology; PCP Nurse Practitioner Family; Visit Provider Obstetrics & Gynecology
PROC: (CPT 58661; principal; 2022-08-29 09:45)
DX: N83.8 Other noninflammatory disorders of ovary, fallopian tube and broad ligament (principal); N83.201 Unspecified ovarian cyst, right side; I25.10 Atherosclerotic heart disease of native coronary artery without angina pectoris; I10 Essential (primary) hypertension; I73.9 Peripheral vascular disease, unspecified; K21.9 Gastro-esophageal reflux disease without esophagitis; E66.01 Morbid (severe) obesity due to excess calories; Z68.42 Body mass index [BMI] 45.0-49.9, adult; E78.5 Hyperlipidemia, unspecified
CPT/HCPCS: 58661; 80048; 87086; 88108; 88305; 93005; 94640; J0131; J0690; J2405; J2704; J2710; J3010; J3490; J7030

== ENCOUNTER → 2022-12-04 11:28 | Outpatient (BNVA) | payer MEDICARE, SELFPAY | PROVIDERS: PCP Nurse Practitioner Family; Visit Provider Internal Medicine Cardiovascular Disease | DX: I25.10 Atherosclerotic heart disease of native coronary artery without angina pectoris (principal); I10 Essential (primary) hypertension; E78.5 Hyperlipidemia, unspecified; I73.9 Peripheral vascular disease, unspecified | CPT/HCPCS: 99214 ==

== ENCOUNTER 2024-05-07 14:08 | Outpatient (CLI) | payer MEDICARE, SELFPAY ==
--- NOTE | 2024-05-07 14:12 | MM_ITS ---
WS: [id number] BILATERAL 3D TOMOSYNTHESIS DIGITAL SCREENING MAMMOGRAPHY WITH CAD CLINICAL INFORMATION: SCREENING HISTORY: Screening mammogram. No current complaints. Inverted nipples. COMPARISON: 2018 TECHNIQUE: Bilateral CC and MLO views. FINDINGS: Scattered fibroglandular densities bilaterally. No suspicious focal mass, asymmetry, calcifications, or architectural distortion. No evidence of malignancy. Incidental calcifications bilaterally MM/[place] [id number] IMPRESSION: BI-RADS: 2-Benign FOLLOW UP: 1 Year Follow-up Recommend return to annual screening mammography.
== END 2024-05-07 14:09 | disposition home or self-care (01) ==
LOC: RAD 14:08
PROVIDERS: PCP Nurse Practitioner Family; Visit Provider Nurse Practitioner Family
DX: Z12.31 Encounter for screening mammogram for malignant neoplasm of breast (principal)
CPT/HCPCS: 77063; 77067

== ENCOUNTER 2024-05-26 10:13 | Outpatient (CLI) | payer MEDICARE, SELFPAY ==
--- NOTE | 2024-05-26 10:20 | XR_ITS ---
WS: [id number] Exam: XR chest 2V* [id number] Date/Time of Exam: 05/26/2024 10:23 AM Reason For Exam: SHORTNESS OF BREATH Comparison 06/02/2021. Mild pulmonary hyperinflation. No infiltrates or pneumothorax. No pleural effusions. Heart size top l imits normal. Prominent main pulmonary arteries might be seen with pulmonary hypertension. Regional b vignesh structures appear normal. XR/XR chest 2V* [id number] IMPRESSION: 1. Mild pulmonary hyperinflation which might indicate obstructive lung disease. No acute process.
== END 2024-05-26 10:14 | disposition home or self-care (01) ==
LOC: RAD 10:15
PROVIDERS: PCP Nurse Practitioner Family; Visit Provider Nurse Practitioner Family
DX: R06.02 Shortness of breath (principal); J98.4 Other disorders of lung
CPT/HCPCS: 71046

== ENCOUNTER → 2024-06-17 09:43 | Outpatient (BNVA) | payer MEDICARE, SELFPAY | PROVIDERS: PCP Nurse Practitioner Family; Referring Provider Nurse Practitioner Family; Visit Provider Nurse Practitioner Family | DX: D48.5 Neoplasm of uncertain behavior of skin (principal); L82.1 Other seborrheic keratosis; L82.0 Inflamed seborrheic keratosis; L57.0 Actinic keratosis; D22.5 Melanocytic nevi of trunk; L23.9 Allergic contact dermatitis, unspecified cause; L56.5 Disseminated superficial actinic porokeratosis (DSAP); I87.2 Venous insufficiency (chronic) (peripheral) | CPT/HCPCS: 11102; 17000; 17110; 99203 ==

== ENCOUNTER 2024-06-18 06:41 | Outpatient (CLI) | payer MEDICARE, SELFPAY ==
[2024-06-18 07:32] VITALS: PULSE 64; RESP 20; O2SAT 98
[2024-06-18] MEDS: albuterol 2.5 mg/3 mL Neb INHALATION (07:32)
[2024-06-18 07:36] VITALS: PULSE 61
== END 2024-06-18 06:42 | disposition home or self-care (01) ==
LOC: RT 06:42
PROVIDERS: PCP Nurse Practitioner Family; Visit Provider Nurse Practitioner Family
DX: R06.02 Shortness of breath (principal)
CPT/HCPCS: 94060; 94726; 94729; J7613

== ENCOUNTER → 2024-07-24 09:01 | Outpatient (BNVA) | payer MEDICARE, SELFPAY | PROVIDERS: PCP Nurse Practitioner Family; Visit Provider Nurse Practitioner Family | DX: L57.0 Actinic keratosis (principal); I87.2 Venous insufficiency (chronic) (peripheral); L82.1 Other seborrheic keratosis; D22.5 Melanocytic nevi of trunk | CPT/HCPCS: 17000; 99213 ==

== ENCOUNTER → 2024-09-25 09:05 | Outpatient (BNVA) | payer MEDICARE, SELFPAY | PROVIDERS: PCP Nurse Practitioner Family; Visit Provider Nurse Practitioner Family | DX: L87.2 Elastosis perforans serpiginosa (principal); L82.1 Other seborrheic keratosis; D22.5 Melanocytic nevi of trunk; L57.8 Other skin changes due to chronic exposure to nonionizing radiation; L57.0 Actinic keratosis | CPT/HCPCS: 17000; 99214 ==

== ENCOUNTER → 2024-12-26 10:47 | Outpatient (BNVA) | payer MEDICARE, SELFPAY | PROVIDERS: PCP Nurse Practitioner Family; Visit Provider Nurse Practitioner Family | DX: I87.2 Venous insufficiency (chronic) (peripheral) (principal); L57.8 Other skin changes due to chronic exposure to nonionizing radiation; L57.0 Actinic keratosis | CPT/HCPCS: 17000; 99214 ==

== ENCOUNTER → 2025-07-02 09:28 | Outpatient (BNVA) | payer MEDICARE, SELFPAY | PROVIDERS: PCP Nurse Practitioner Family; Visit Provider Nurse Practitioner Family | DX: L57.0 Actinic keratosis (principal); L89.322 Pressure ulcer of left buttock, stage 2; Z71.3 Dietary counseling and surveillance; L57.8 Other skin changes due to chronic exposure to nonionizing radiation; I87.2 Venous insufficiency (chronic) (peripheral); L82.1 Other seborrheic keratosis; D18.01 Hemangioma of skin and subcutaneous tissue | CPT/HCPCS: 99214 ==